=== PATIENT | male | born 1960 | race Caucasian/White ===

== ENCOUNTER 2025-02-12 15:59 | Emergency (ER) | payer MEDICARE, SELFPAY ==
--- OUTSIDE RECORDS SUMMARY | 2025-02-12 16:02 | XMS_ITS | Encounter Summary ---
Author Organization [facility] Address [address] [place] [address] Care Team Providers Care Draw Hand Name Role Phone Becki Lunsford MD Primary Care Provider [phone] Reason for Visit * Auth/Cert (Routine) Specialty Diagnoses / Procedures Referred By Susan t Referred To Contact Diagnoses HEMATURIA, GROSS; BLADDER MASS R31.0, N32.89 Procedures CYSTOURETHROSCOPY,FULGUR .5-2CM LESN CYSTOSCOPY WITH TRANSURETHRAL RESECTION BLADDER TUMOR Alexsander Grady MD 3 [facility] [address] [place] [address] Phone: tel: fax: Referral ID Status Reason Start Date Expiration Date Visits Re quested Visits Authorized [id number] 1 1 Encounter Details Date Type Department Care Team (Late st Contact Info) Description 02/11/2025 5:36 AM CDT - 02/11/2025 2:35 PM [facility] Hospital Encounter [facility] [place] [address] Alexsander Grady MD 3 [facility] [address] [place] [address] [phone] Discharge Disposition: Home or Self Care (Routine Discharge) Social History Tobacco Use Types Packs/Day Years Used Date Smoking Tobacco: Every Day Cigarettes 1 40 Smokeless Tobacco: Never Comments:not ready to quit Alcohol Use Standard Drinks/Week Comments Yes 0 (1 standard drink = 0.6 oz pur e alcohol) occasional AUDIT-C Answer Date Recorded Frequency of Alcohol Consumption 4 or more times a week 07/01/2018 Average Number of Drinks 3 or 4 018 Frequency of Binge Drinking Not on file 06/06 PHQ-2 Answer Date Recorded Patient Health Questionnaire-2 Score 0 01/05/2025 Sex and Gender Information Value Date Recorded Sex Assigned at Male 11/17/2018 8:20 AM CDT Legal Sex Male 7:58 PM CDT Gender Identity Male 11/17/2018 8:20 AM CDT Sexual Orientation Straight 11/17/2018 8: 20 AM CDT documented as of this encounter Last Filed Vital Signs Vital Sign Reading Time Taken Comments Blood Pressure 115/69 02/11/2025 2:30 PM CDT Pulse 101 02/11/2025 2:30 PM CDT Temperature 37 C (98.6 F) 02/11/2025 2:30 PM CDT Respiratory Rate 20 02/11/2025 2:30 PM CDT Oxygen Saturation 94% 02/11/2025 2:30 PM CDT Inhaled Oxygen Concentration - - Weight 82.4 kg (181 lb 10.5 oz) 02/11/2025 6:25 AM CDT Height 170.2 cm (5' 7) 02/11/2025 6:25 AM CDT Body Mass Index 28.45 02/11/2025 6:25 AM CDT documented in this encounter Functional Status * Calculated C-SSRS Risk Score (Lifetime/Recent) Answer Date of Assessment Author Status No Risk Indicated 02/11/2025 7:00 AM CDT Karyn Mayo RN Active * [place] Suicide Severity Rating Scale (Screener/Recent Self-Report) Question Answer Date of Assessment Author Status 1. Wish to be (Past 1 Month) No 02/11/2025 7:00 AM CDT Maria Fernanda Mayo RN Ac tive 2. Non-Specific Active Suicidal Thoughts (Past 1 Month) No 02/11/2025 7:00 AM CDT Maria Fernanda Mayo RN Act fawad 6. Suicidal Behavior (Lifetime) No 02/11/2025 7:00 AM REMYT Maria Fernanda Mayo RN Act fawad documented as of this encounter Discharge Instructions * Discharge Instructions* Zofia Escobar RN - 02/11/2025 8:57 AM CDT Your urine will be bloody and should begin to clear a few days after your treatment. Increase fluids until your urine clears. Call your doctor if you develop a fever above 100 degrees of have thick, blood clotted urine. If your doctor hasn???t given you a prescription for pain relievers, take two Tylenol every four hours, as needed. If the pain does not get better, call your doctor. Return to your usual medications, unless otherwise directed by your doctor. Do not take aspirin products until your urine begins to clear. Avoid heavy lifting (over 25 to 30 pounds) for long periods of time during the first week Because you had anesthesia, we suggest these things: -Avoid greasy, fried or spicy foods for today -Take medication with food -Have a responsible adult stay with you the rest of today and overnight -No alcohol, driving, making major decision or operating machinery for 24 hours If you have chest pain, shortness of breath, excessive bleeding or drainage, if you cannot hold down anything to eat or drink, or if you cannot urinate, please call 911 or go to the nearest emergencyroom. If you have fever, pain not controlled by your medication, signs of infection such as redness or discharge or swelling at the site, or any other questions or concerns, please call your surgeon. * Attachments The following attachments cannot be sent through Care Everywhere. * Cystoscopy Discharge Instructions (Chadian) * Transurethral resection of a bladder tumor ??? Discharge instructions (Chadian) * General Anesthesia Discharge Instructions (Chadian) * Lockett Catheter, Male (Chadian) documented in this encounter Medications at Time of Discharge amLODIPine (NORVASC) 10 MG tabletIndications:Pr imary hypertension Take 1 tablet (10 mg total) by mouth daily. 90 tablet 1 10/14/2024 atorvastatin (LIPITOR) 10 MG tabletIndications:Mi xed hyperlipidemia Take 1 tablet (10 mg total) by mouth nightly at bedtime. 90 tablet 1 10/14/2024 DULoxetine (CYMBALTA) 60 MG capsuleIndications:C hronic bilateral low back pain without sciatica Take 1 capsule (60 mg total) by mouth nightly at bedtime. 90 capsule 1 10/14/2024 glipiZIDE (GLUCOTROL) 10 MG tabletIndications:Ty pe 2 diabetes mellitus with hyperglycemia, without long-term current use of insulin ([facility] HHS/HCC) TAKE 1 TABLET BY MOUTH TWICE A DAY 180 tablet 1 01/08/2025 hydroCHLOROthiazide (MICROZIDE) 12.5 MG capsuleIndications:P rimary hypertension Take 1 capsule (12.5 mg total) by mouth every morning. 90 capsule 1 10/14/2024 metFORMIN (GLUCOPHAGE) 1000 MG tabletIndications:Ty pe 2 diabetes mellitus with hyperglycemia, without long-term current use of insulin ([facility] HHS/HCC) Take 1 tablet by mouth daily 90 tablet 1 10/14/2024 metoprolol succinate ER (TOPROL-XL) 25 MG 24 hr tabletIndications:Pr imary hypertension Take 1 tablet (25 mg total) by mouth daily. 90 tablet 1 10/14/2024 Multiple Vitamins-Minerals (CENTRUM SILVER ULTRA MENS) Tab Take 1 tablet by mouth daily. 07/27/2014 sildenafil (VIAGRA) 50 MG tabletIndications:Er ectile dysfunction, unspecified erectile dysfunction type Take 1 tablet (50 mg total) by mouth as needed. 10 tablet 04/07/2021 documented as of this encounter H&P Notes * Alexsander Grady MD - 02/11/2025 7:05 AM CDT Attending Provider: Alexsander Grady MD PCP: BECKI LUNSFORD MD Leyla Frias is an 64-year-old male. Reason for Admission: * No active hospital problems. * Bladder mass HPI: Mr. Frias had hematuria. A CT urogram showed a large bladder mass. There is no hydronephrosis. He presents today for a cystoscopy with a transurethral resection of bladder tumor. Past Medical History[1] Allergies: No Known Allergies Social History Tobacco Use Smoking status: Every Day Current packs/day: 1.00 Average packs/day: 1 pack/day for 40.0 years (40.0 ttl pk-yrs) Types: Cigarettes Smokeless tobacco: Never Tobacco comments: not ready to quit Substance Use Topics Alcohol use: Yes Comment: occasional Past Surgical History[2] Family History[3] Travel Exposure: No current facility-administered medications on file prior to encounter. Current Outpatient Medications on File Prior to Encounter Medication Sig amLODIPine (NORVASC) 10 MG tablet Take 1 tablet (10 mg total) by mouth daily. atorvastatin (LIPITOR) 10 MG tablet Take 1 tablet (10 mg total) by mouth nightly at bedtime. DULoxetine (CYMBALTA) 60 MG capsule Take 1 capsule (60 mg total) by mouth nightly at bedtime. glipiZIDE (GLUCOTROL) 10 MG tablet TAKE 1 TABLET BY MOUTH TWICE A DAY hydroCHLOROthiazide (MICROZIDE) 12.5 MG capsule Take 1 capsule (12.5 mg total) by mouth every morning. metFORMIN (GLUCOPHAGE) 1000 MG tablet Take 1 tablet by mouth daily metoprolol succinate ER (TOPROL-XL) 25 MG 24 hr tablet Take 1 tablet (25 mg total) by mouth daily. Multiple Vitamins-Minerals (CENTRUM SILVER ULTRA MENS) Tab Take 1 tablet by mouth daily. sildenafil (VIAGRA) 50 MG tablet Take 1 tablet (50 mg total) by mouth as needed. Blood pressure 121/73, pulse 89, temperature 97.7 ??F (36.5 ??C), temperature source Temporal, resp. rate 22, height 1.702 m (5' 7), weight 82.4 kg (181 lb 10.5 oz), SpO2 96%. Review of Systems All other systems reviewed and are negative. Physical Exam Constitutional: Appearance: He is normal weight. HENT: Head: Normocephalic and atraumatic. Pulmonary: Effort: Pulmonary effort is normal. Abdominal: General: Abdomen is flat. Neurological: General: No focal deficit present. Mental Status: He is alert and oriented to person, place, and time. Psychiatric: Mood and Affect: Mood normal. Behavior: Behavior normal. Assessment: Bladder mass consistent with bladder cancer Plan: Cystoscopy with transurethral resection of a bladder tumor. We discussed risks of bleeding and infection. We discussed the possible need for a Lockett catheter after surgery. We discussed that if tumors involving the ureters, a stent may be needed. He would like to proceed as planned with surgery today. ALEXSANDER GRADY MD 02/11/2025 [1] Past Medical History: Diagnosis Date Bladder mass 02/03/2025 Cataract Diabetes mellitus ([facility]/HCC [facility]/HCC) [2] Past Surgical History: Procedure Laterality Date EYE SURGERY FRACTURE SURGERY left elbow [3] Family History Problem Relation Name Age of Onset Sleep Apnea Mother None Father documented in this encounter Nursing Notes * Miracle Hughes RN - 02/11/2025 9:00 AM CDT Patient hypertensive upon arrival to PACU. Difficulty with airway and required jaw thrust with ambubag. Provider at bedside ordered another dose of sugammedex. Respirations normalized upon receivingsugammadex. Able to wean off O2 in PACU. * Mayra Ignacio RN - 02/11/2025 8:08 AM CDT Patient daughter updated through epic texting documented in this encounter OR Notes * Op Note - Alexsander Grady MD - 02/11/2025 8:43 AM CDT Operative Report SURGEON: Alexsander Grady MD SURGICAL TEAM: Surgeons and Role: * Alexsander Grady MD - Primary DATE OF SURGERY : 02/11/2025 PREOPERATIVE DIAGNOSIS: HEMATURIA, GROSS; BLADDER MASS R31.0, N32.89 POSTOPERATIVE DIAGNOSIS: * No Diagnosis Codes entered * PROCEDURE: Cystoscopy with transurethral resection of a large, 6 cm, bladder tumor 2. DRAINS: None INDICATION FOR PROCEDURE: This is a 64-year-old man who presents to [facility] with left lateral wall bladder mass. Prior to the procedure, I discussed the benefits, risks and alternatives to this procedure. Findings Pancystoscopy revealed a 6 cm bladder tumor on the left lateral bladder wall Bilateral ureteral orifice in normal position No evidence of bleeding at the completion of the surgery ANESTHESIA: General Specimens: Order Name Source Comment Collection Info Order Time PATHOLOGY BLADDER Collected By: Alexsander Grady MD 02/11/2025 8:06 AM Release to patient System release Complications: none OPERATIVE DETAILS The patient was brought to the operating room in stable condition. He was placed under general anesthesia. He was placed in lithotomy position and prepped and draped in standard sterile fashion. He received antibiotic prophylaxis within 1 hour of the start of surgery. A 26 Georgian continuous-flow resection scope was introduced through the urethra into the bladder. A small bladder stone was noted. This was flushed out of the bladder. There was a 6 cm bladder tumor on the left side of the bladder wall. I could clearly visualize the right ureteral orifice. I initially could not visualize the leftureteral orifice. I resected the bladder tumor starting at the more superior portion of the tumor. I resected down towards the trigone. With removal of the tumor, I was able to visualize the ureter. The ureter was not involved with the tumor on the left side or the right side. I completed the resection of the tumor. I removed all of the specimens. The tumor is visually a muscle invasive bladder tumor. I controlled all of the bleeding. I filled and emptied the bladder multiple times to ensure the bleeding was fully controlled. There was no residual bleeding noted. I then remove the scope. I placed lidocaine jelly. The patient tolerated the procedure well. Condition on Discharge from the operating room was stable ALEXSANDER GRADY MD Date: 02/11/2025 Time: 8:43 AM * OR PreOp - TAJ Robbins - 02/03/2025 10:54 AM CDT Chart reviewed. Per phone interview, patient denies extreme SOB/CP with 2 FOS or recent changes in activity tolerance in past 6 months. Per phone interview, patient denies having a family member caretaker or previous cardiac testing. EKG DOS 2/2 smoking hx. * OR PreOp - Chinyere Moran RN - 02/02/2025 3:59 PM CDT PATIENT CAN CLIMB 2 FLIGHTS OF STAIRS WITHOUT CP OR EXTREME SOB. yes ACTIVITY TOLERANCE IS THE SAME 6 MONTHS AGO. yes DENIES CARDIAC TESTING. AVERAGE BLOOD PRESSURE? Says that BP is normally good, but can't recall the numbers. Amlodipine, Toprol, HCTZ Patient is a current tobacco user. They were instructed to hold any tobacco use after midnight the night before the surgical procedure. Patient understood instructions and provided consent. documented in this encounter Plan of Treatment Upcoming Encounters Date Type Department Care Team (Late st Contact Info) Description 04/08/2025 1:00 PM CDT Office Visit [facility] Family & Internal Medicine [address] [phone] Becki Lunsford MD [address] [address] documented as of this encounter Goals Goal Patient Goal Type Associated Problems Recent Progress Patient-Stated? Author Autogenerat ed Goal Care Plan Autogenerated Problem No Shikha Byrd RN documented as of this encounter Procedures Procedure Name Priority Date/Time Associated Diagnosis Comments XR CHEST PORTABLE Today 02/11/2025 11: 15 AM CDT POCT GLUCOSE - DOCKED DEVICE Routine 02/11/2025 9:20 AM CDT CYSTOURETHROSCOPY ,FULGUR .5-2CM LESN 02/11/2025 7:26 AM CDT HEMATURIA, GROSS; BLADDER MASS R31.0, N32.89 Case Notes SCHED BY FAX 01/29/2025 [facility] PHONE ASSESS Special Needs PER FAX ORDER NEEDS 2 HOURS ECG 12-LEAD STAT 02/11/2025 6:47 AM CDT Preop examination POCT GLUCOSE - DOCKED DEVICE Routine 02/11/2025 6:43 AM CDT PATHOLOGY Routine 02/11/2025 12:00 AM CDT documented in this encounter Results * XR CHEST PORTABLE (02/11/2025 11:15 AM CDT) Anatomical Region Laterality Modality Chest Radiographic Mini ging 02/11/2025 11:1 7 AM CDT Impressions 02/11/2025 11:17 AM CDT IMPRESSION: No acute findings Ordered By: SUZIE LYNN Interpreted By: Kings Rodriguez MD, 02/11/2025 11:17 AM Narrative 02/11/2025 11:17 AM CDT [place] [address] SINGLE VIEW OF THE CHEST Clinical history: Hypoxia Comparison: None A single view of the chest demonstrates the cardiac silhouette to be normal in size and appearance. The pulmonary vessels appear normal. The Lungs are clear. No consolidations or effusions are seen. Procedure Note Kings Rodriguez MD - 02/11/2025 [place] [address] SINGLE VIEW OF THE CHEST Clinical history: Hypoxia Comparison: None A single view of the chest demonstrates the cardiac silhouette to benormal in size and appearance. The pulmonary vessels appear normal. TheLungs are clear. No consolidations or effusions are seen. IMPRESSION: No acute findings Ordered By: SUZIE LYNN Interpreted By: Kings Rodriguez MD, 02/11/2025 11:17 AM Suzie Lynn MD GENERAL IMAGING Final Result * (ABNORMAL) POCT glucose (02/11/2025 9:20 AM CDT) GLUCOSE POC 210(H) 70 - 99 mg/dL 02/11/2025 9:22 AM CDT [facility] 02/11/2025 9:20 AM CDT Alexsander Grady MD POCT ORDERABLES - DEVICE Final Result [facility] [address] [place] [address], * ECG 12 lead (02/11/2025 6:47 AM CDT) 02/11/2025 6:47 AM CDT Narrative [facility] - 02/11/2025 7:19 AM CDT [address] Test Date: 2025-02-11 Pat Name: LEYLA FRIAS Department: 40 Room: [facility] Gender: Male Professional Fighter: : 1960 Requested By: NIHARIKA HERNANDEZ Order Number: [id number] Reading MD: Leyla Diaz Measurements Intervals Arion Rate: 87 P: 60 NH: 149 QRS: 261 QRSD: 150 T: 47 QT: 394 QTc: 476 Interpretive Statements SINUS RHYTHM RIGHT AXIS DEVIATION [QRS AXIS > 100] RIGHT BUNDLE BRANCH BLOCK [120+ ms QRS DURATION, UPRIGHT V1, 40+ ms S IN I/aVL/V4/V5/V6] Compared to ECG 08/13/2015 10:00:38 Right-axis deviation now present Right bundle-branch block now present Sinus tachycardia no longer present Right superior axis no longer present Procedure Note Leyla Diaz MD - 02/11/[address] Test Date: 2025-02-11 Pat Name: LEYLA FRIAS Department: 40 Room: [facility] Gender: Male Professional Fighter: : 1960 Requested By: NIHARIKA HERNANDEZ Order Number: [id number] Reading MD: Leyla Diaz Measurements Intervals Arion Rate: 87 P: 60 NH: 149 QRS: 261 QRSD: 150 T: 47 QT: 394 QTc: 476 Interpretive Statements SINUS RHYTHM RIGHT AXIS DEVIATION [QRS AXIS > 100] RIGHT BUNDLE BRANCH BLOCK [120+ ms QRS DURATION, UPRIGHT V1, 40+ ms SIN I/aVL/V4/V5/V6] Compared to ECG 08/13/2015 10:00:38 Right-axis deviation now present Right bundle-branch block now present Sinus tachycardia no longer present Right superior axis no longer present Niharika Hernandez MACHINE CLEANER ECG ORDERABLES Final R esult Performing Organization Address City/[facility]/ZIP Co de Phone Number [facility] * (ABNORMAL) POCT glucose (02/11/2025 6:43 AM CDT) GLUCOSE POC 144(H) 70 - 99 mg/dL 02/11/2025 6:59 AM CDT [facility] 02/11/2025 6:43 AM CDT Alexsander Grady MD POCT ORDERABLES - DEVICE Final Result Performing Organization Address City/[facility] Co de Phone Number [facility] [address] [place] [address], [place] [phone] * Pathology (02/11/2025 12:00 AM CDT) PATHOLOGY [facility] Department of Laboratory Medicine [address] [place] [address] , extension [phone] Pathology Report Surgical Pathology Report Name: ALTAGRACIA LEYLA Hernandez Specimen #: [id number] Age: 11 1960 (Age: 64) Location: [facility] Sex: M Procedure Date: 02/11/2025 Hospital #: [id number] Date Received: 02/11/2025 Date Reported: 02/12/2025 Provider: ALEXSANDER GRADY MD Source: Bladder tumor Clinical History: Gross hematuria, bladder mass. 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 - Muscularis propria is involved by carcinoma. Gross Description: Received in formalin, labeled with a patient label and as bladder tumor are multiple pieces of pink-cooper tissue, 5.5 x 4.5 x 1 cm in aggregate. The specimen is entirely submitted in cassettes 1 through 9. Gross examination (when applicable), interpretation, and sign out were performed at [facility], [address] [place] [address]. Electronically Signed Out PEDRO LUIS BOBBY MD [facility] TISSUE URINARY BLADDER STRUCTURE / Unknown 02/11/2025 8:05 AM CDT us Alexsander Grady MD PATHOLOGY/CYTOLOGY ORDERABLES F inal Result [facility] [address] [place] [address], [phone] documented in this encounter Visit Diagnoses Diagnosis Hematuria- Primary Hematuria, unspecified Bladder mass Other specified disorders of bladder Preop examination Preoperative examination, unspecified documented in this encounter Administered Medications Inactive Administered Medications - up to 3 most recent administrations Medication Order MAR Action Action Date Dose Rate Site dexamethasone (DECADRON) injection 4 mg 4 mg, Intravenous, PRN, nausea/vomiting, 1 dose, Starting on Josefina 02/11/25 at 1020, Until Josefina 02/11/25 at 1044, Administer slowly over 1-4 minutes. Given 02/11/2025 10:44 AM CDT 4 mg ipratropium-albuterol (DUONEB) 0.5-2.5 (3) MG/3ML nebulizer solution 3 mL 3 mL, Nebulization, Once RT, 1 dose, On Josefina 02/11/25 at 0930 Given 02/11/2025 9:17 AM CDT 3 mLs ipratropium-albuterol (DUONEB) 0.5-2.5 (3) MG/3ML nebulizer solution 3 mL 3 mL, Nebulization, Once RT, 1 dose, On Josefina 02/11/25 at 1045 Given 02/11/2025 10:27 AM CDT 3 mLs ipratropium-albuterol (DUONEB) 0.5-2.5 (3) MG/3ML nebulizer solution 1 dose, Starting on Josefina 02/11/25 at 1025, Until Josefina 02/11/25 at 1027, Created by cabinet override labetalol (TRANDATE) injection 5 mg 5 mg, Intravenous, Every 10 min PRN, High blood pressure, SBP>160, DBP>80, 4 doses, Starting on Josefina 02/11/25 at 0903, Until Josefina 02/11/25 at 1641 lactated ringers infusion at 10 mL/hr, Intravenous, Continuous, Starting on Josefina 02/11/25 at 0615, Until Josefina 02/11/25 at 1641, Not to be given to patients with end stage renal disease or dialysis. Infuse at TKO rate, Pre-Op New Bag 02/11/2025 7:24 AM CDT documented in this encounter Active and Recently Administered Medications Times are shown in CDT. Scheduled Medication Order 02/09/2025 02/10/2025 02/11/2025 ceFAZolin (ANCEF) 2 g in NS 100 mL IVPB (COMPLETED) 2 g, Intravenous, at 400 mL/hr, crew caller to O.R., 1 dose, First dose on Josefina 02/11/25 at 0615, Pre-Op 0737 (New Bag - Prov ider: Sheldon Renner, SALES SUPERVISOR) ipratropium-albuterol (DUONEB) 0.5-2.5 (3) MG/3ML nebulizer solution 3 mL (COMPLETED) 3 mL, Nebulization, Once RT, 1 dose, On Josefina 02/11/25 at 0930 0917 (Given - Provid er: Miracle Hughes RN) ipratropium-albuterol (DUONEB) 0.5-2.5 (3) MG/3ML nebulizer solution 3 mL (COMPLETED) 3 mL, Nebulization, Once RT, 1 dose, On Josefina 02/11/25 at 1045 1027 (Given - Provid er: Miracle Hughes RN) Continuous Medication Order 02/09/2025 02/10/2025 02/11/2025 lactated ringers infusion at 10 mL/hr, Intravenous, Continuous, Starting on Josefina 02/11/25 at 0615, Until Josefina 02/11/25 at 1641, Not to be given to patients with end stage renal disease or dialysis. Infuse at TKO rate, Pre-Op 0724 (New Bag - Prov ider: Sheldon Renner CRNA)0816 (Anesthesia Volume Adjustment - Provider: Sheldon Renner CRNA) PRN Medication Order 02/09/2025 02/10/2025 02/11/2025 dexamethasone (DECADRON) injection 4 mg (COMPLETED) 4 mg, Intravenous, PRN, nausea/vomiting, 1 dose, Starting on Josefina 02/11/25 at 1020, Until Josefina 02/11/25 at 1044, Administer slowly over 1-4 minutes. 1044 (Given - Provid er: Miracle Hughes RN) labetalol (TRANDATE) injection 5 mg 5 mg, Intravenous, Every 10 min PRN, High blood pressure, SBP>160, DBP>80, 4 doses, Starting on Josefina 02/11/25 at 0903, Until Josefina 02/11/25 at 1641 lidocaine (XYLOCAINE) 2 % jelly (CANCELED) As needed, Starting on Josefina 02/11/25 at 0826, Until Josefina 02/11/25 at 0849, Intra-Op 0826 (Given - Provid er: Alexsander Grady MD) NON FORMULARY (CANCELED) As needed, Starting on Josefina 02/11/25 at 0804, Until Josefina 02/11/25 at 0849, Intra-Op 0804 (Given - Provid er: Alexsander Grady MD - Comment: sterile water 2000 mL bags) documented in this encounter Additional Health Concerns Active Problems Noted Date Diagnosed Date Autogenerated Problem 01/29/2025 Assessment Noted Time PHQ-9 Depression Total Score: 2 01/09/20 23 2:30 PM CDT documented as of this encounter Care Teams Draw Hand Relationship Specialty Start [place] [address] [place] [address] PCP - General FAMILY PRACTICE 06/23/18 documented as of this encounter
--- OUTSIDE RECORDS SUMMARY | 2025-02-12 16:02 | XMS_ITS | Encounter Summary ---
Author Organization [facility] Address [address] [place] [address] Care Team Providers Care Block Sawyer Name Role Phone Conor Lunsford MD Primary Care Provider [phone] Encounter Details Date Type Department Care Team (Latest Contact Info) Description 01/06/2025 Results Follow-Up [facility] [address] [place] [address] Kassie García RN COMPREHENSIVE METABOLIC PANEL, LIPID PANEL, PROSTATE SPECIFIC ANTIGEN,SCREENING, Additional followed-up results: 2 Social History Tobacco Use Types Packs/Day Years [...] AM CDT documented as of this encounter Progress Notes * Kassie García RN - 01/06/2025 4:14 PM CDT Called [facility] lab and informed them we need a urine c/s. Lynda states she will get this started. Order placed. Called pt and informed him of this. Order placed for CT urogram. Referral to urology placed. * Kassie García RN - 01/06/2025 4:12 PM CDT Called pt and informed him of results. He v/u. documented in this encounter Plan of Treatment Upcoming Encounters Date Type Department Care Team (Late st Contact Info) Description 04/08/2025 1:00 PM CDT Office Visit [facility] Family & Internal Medicine [facility] [id number] [place] [phone] Conor Lunsford MD [address] [address] documented as of this encounter Visit Diagnoses Not on filedocumented in this encounter Additional Health Concerns Assessment Noted Time PHQ-9 Depression Total Score: 2 01/09/20 23 2:30 PM CDT documented as of this encounter Care Teams Block Sawyer Relationship Specialty [place] [address] [place] [address] PCP - General FAMILY PRACTICE 06/23/18 documented as of this encounter
--- OUTSIDE RECORDS SUMMARY | 2025-02-12 16:02 | XMS_ITS | Encounter Summary ---
Author Organization [facility] Address [address] [place] [address] Care Team Providers Care Melter Supervisor Oxygen Furnace Name Role Phone Conor Lunsford MD Primary Care Provider [phone] Reason for Visit * Auth/Cert (Routine) Specialty Diagnoses / Procedures Referred By Susan t Referred To Contact Diagnoses HEMATURIA, GROSS; BLADDER MASS R31.0, N32.89 Procedures CYSTOURETHROSCOPY,FULGUR .5-2CM LESN CYSTOSCOPY WITH TRANSURETHRAL RESECTION BLADDER TUMOR Alexsander Grady MD [address] [facility] [address] [place] [address] Phone: tel: fax: Referral ID Status Reason Start Date Expiration Date Visits Re quested Visits Authorized [id number] 1 1 Encounter Details Date Type Department Care Team (Late st Contact Info) Description 02/11/2025 7:30 AM CDT - 02/11/2025 10:24 AM CDT Surgery [facility] [place] [address] Alexsander Grady MD [address] [facility] [address] [place] [address] [phone] CYSTOSCOPY WITH TRANSURETHRAL RESECTION BLADDER TUMOR Surgery Details Date/Time Status Location OR Service Patient Class Case Class Case Type Trauma Case? 02/11/2025 7:30 AM Posted [facility] OR OR 1 Urology Short Stay/Outpati ent Surgery E - Elective No Panel 1 Procedure LRB Anes Op Region Wound Class Comments CYSTOSCOPY WITH TRANSURETHRA L RESECTION BLADDER TUMOR N/A General Bladder Clean Contaminate d Surgeon Surgeon Role Service Panel Alexsander Grady MD Primary Urology 1 Case Notes SCHED BY FAX 01/29/2025 [facility] PHONE ASSESS Special Needs PER FAX ORDER DR NEEDS 2 HOURS documented in this encounter Social History Tobacco Use Types Packs/Day Years [...] Sign Reading Time Taken Comments Blood Pressure 118/66 02/11/2025 9:45 AM CDT Pulse 88 02/11/2025 10:00 AM CDT Temperature 36.8 C (98.3 F) 02/11/2025 8:50 AM CDT Respiratory Rate 23 02/11/2025 10:0 0 AM CDT Oxygen Saturation 91% 02/11/2025 10: 00 AM CDT Inhaled Oxygen Concentration - - Weight 82.4 kg (181 lb 10.5 oz) 02/11/2025 6:25 AM CDT Height 170.2 cm (5' 7) 02/11/2025 6:25 AM CDT Body Mass Index 28.45 02/11/2025 6:25 AM CDT documented in this encounter Functional Status * Calculated C-SSRS Risk Score (Lifetime/Recent) Answer Date of Assessment Author Status No Risk Indicated 02/11/2025 7:00 AM CDT Karyn Mayo, RN Active * [place] Suicide Severity Rating Scale (Screener/Recent Self-Report) Question Answer Date of Assessment Author Status 1. Wish to be (Past 1 Month) No 02/11/2025 7:00 AM REMYT Maria Fernanda Mayo RN Act fawad 2. Non-Specific Active Suicidal Thoughts (Past 1 Month) No 02/11/2025 7:00 AM REMYT Maria Fernanda Mayo RN Act fawad 6. [...] through Care Everywhere. * Cystoscopy Discharge Instructions (Northern Irish) * Transurethral resection of a bladder tumor ??? Discharge instructions (Northern Irish) * General Anesthesia Discharge Instructions (Northern Irish) * Lockett Catheter, Male (Northern Irish) documented in this encounter Medications at Time [...] hyperglycemia, without long-term current use of insulin ([facility]/HCC) TAKE 1 TABLET BY MOUTH TWICE A DAY 180 tablet 1 01/08/2025 hydroCHLOROthiazide (MICROZIDE) 12.5 MG capsuleIndications:P rimary hypertension Take 1 capsule (12.5 mg total) by mouth every morning. 90 capsule 1 10/14/2024 metFORMIN (GLUCOPHAGE) 1000 MG tabletIndications:Ty pe 2 diabetes mellitus with hyperglycemia, without long-term current use of insulin ([facility]/HCC) Take 1 tablet by mouth daily [...] CDT Attending Provider: Alexsander Grady MD PCP: MD Leyla CONROY is an 64-year-old male. Reason for Admission: [...] Date Bladder mass 02/03/2025 Cataract Diabetes mellitus ([facility]/HCC [facility]/HCC) [2] Past Surgical History: Procedure Laterality Date [...] 8:08 AM CDT Patient daughter updated through [employer] texting documented in this encounter OR Notes [...] is a 64-year-old man who presents to [facility] with left lateral wall bladder mass. Prior [...] of the start of surgery. A 26 Polish continuous-flow resection scope was introduced through the [...] Date: 02/11/2025 Time: 8:43 AM * OR [facility] - TAJ Robbins - 02/03/2025 10:54 AM CDT Chart reviewed. Per phone interview, patient denies extreme SOB/CP with 2 FOS or recent changes in activity tolerance in past 6 months. Per phone interview, patient denies having a crystal growing technician or previous cardiac testing. EKG DOS 2/2 [...] Description 04/08/2025 1:00 PM CDT [facility] Family [facility] Internal Medicine [address] [address] Conor Lunsford MD [address] [place] [address] documented as of this encounter Goals Goal [...] 11:17 AM Narrative 02/11/2025 11:17 AM CDT [place] [address] SINGLE VIEW OF THE CHEST Clinical history: Hypoxia Comparison: None A single view of the chest demonstrates the cardiac silhouette to be normal in size and appearance. The pulmonary vessels appear normal. The Lungs are clear. No consolidations or effusions are seen. Procedure Note Kings Rodriguez MD - 02/11/2025 [place] [address] SINGLE VIEW OF THE CHEST Clinical history: [...] - 99 mg/dL 02/11/2025 9:22 AM CDT [facility] 02/11/2025 9:20 AM CDT Alexsander Grady MD POCT ORDERABLES - DEVICE Final Result Performing Organization Address City/State/[facility] Co de Phone Number [facility] [address] [place] [address], * ECG 12 lead (02/11/2025 6:47 AM CDT) 02/11/2025 6:47 AM CDT Narrative [facility] - 02/11/2025 7:19 AM CDT [address] Test Date: 2025-02-11 Pat Name: LEYLA FRIAS Department: 40 Room: [facility] Gender: Male Sales Representative Cash Registers: : 1960 Requested By: NIHARIKA HERNANDEZ Order Number: [id number] Gisela MD: Leyla Diaz Measurements Intervals [place] Rate: 87 P: 60 OR: 149 QRS: 261 QRSD: 150 T: 47 [...] Procedure Note Leyla Diaz MD - 02/11/[address] Test Date: 2025-02-11 Pat Name: LEYLA FRIAS Department: 40 Room: [facility] Gender: Male Sales Representative Cash Registers: : 1960 Requested By: NIHARIKA HERNANDEZ Order Number: [id number] Reading MD: Leyla Diaz Measurements Intervals [place] Rate: 87 P: 60 OR: 149 QRS: 261 QRSD: 150 T: 47 QT: 394 QTc: 476 Interpretive Statements SINUS RHYTHM RIGHT AXIS DEVIATION [QRS AXIS > 100] RIGHT BUNDLE BRANCH BLOCK [120+ ms QRS DURATION, UPRIGHT V1, 40+ ms SIN I/aVL/V4/V5/V6] Compared to ECG 08/13/2015 10:00:38 Right-axis deviation now present Right bundle-branch block now present Sinus tachycardia no longer present Right superior axis no longer present us Niharika Hernandez BIOASSAYIST ECG ORDERABLES Final R esult Performing Organization Address City/[facility]/ZIP Co de Phone Number [facility] * (ABNORMAL) POCT glucose (02/11/2025 6:43 AM CDT) Pathologist [facility] GLUCOSE POC 144(H) 70 - 99 mg/dL 02/11/2025 6:59 AM CDT [facility] 02/11/2025 6:43 AM CDT us Alexsander Grady MD POCT ORDERABLES - DEVICE Final Result Performing Organization Address City/[facility]/ZIP Co de Phone Number [facility] [address] [place] [address], * Pathology (02/11/2025 12:00 AM CDT) PATHOLOGY [facility] Department of Laboratory Medicine [address] [place] [address] , extension [phone] Pathology Report Surgical Pathology Report Name: LEYLA FRIAS Specimen #: [id number] Age: 11 1960 (Age: 64) Location: [facility] Sex: M Procedure Date: 02/11/2025 Hospital #: [id number] Date Received: 02/11/2025 Date Reported: 02/12/2025 Provider: [...] interpretation, and sign out were performed at [facility], [address] [place] [address], [place] [address]. Electronically Signed Out PEDRO LUIS BOBBY MD [facility] TISSUE URINARY BLADDER STRUCTURE / Unknown 02/11/2025 8:05 AM CDT Alexsander Grady MD PATHOLOGY/CYTOLOGY ORDERABLES F inal Result [facility] [address] [place] [address], [id number] documented in this encounter Visit Diagnoses Not on filedocumented in this encounter Administered Medications Inactive Administered [...] Until Josefina 02/11/25 at 1027, Created by carol ann sutton labetalol (TRANDATE) injection 5 mg 5 mg, [...] Pre-Op New Bag 02/11/2025 7:24 AM CDT lidocaine (XYLOCAINE) 2 % jelly As needed, Starting on Josefina 02/11/25 at 0826, Until Josefina 02/11/25 at 0849, Intra-Op Given 02/11/2025 8:26 AM CDT 1 Application Operative Site NON FORMULARY As needed, Starting on Josefina 02/11/25 at 0804, Until Josefina 02/11/25 at 0849, Intra-Op Given 02/11/2025 8:04 AM CDT 16,000 mLs Operative Site documented in this encounter Active and Recently Administered Medications Times are shown in CDT. Scheduled Medication Order 02/09/2025 02/10/2025 02/11/2025 ceFAZolin (ANCEF) 2 g in NS 100 mL IVPB (COMPLETED) 2 g, Intravenous, at 400 mL/hr, nuclear waste management engineer to O.R., 1 dose, First dose on Josefina 02/11/25 at 0615, Pre-Op 0737 (New Bag - Prov ider: Sheldon Renner CRNA) ipratropium-albuterol (DUONEB) 0.5-2.5 (3) MG/3ML nebulizer solution [...] documented as of this encounter Care Teams Melter Supervisor Oxygen Furnace Relationship Specialty [place] [address] [place] [address] PCP - General FAMILY PRACTICE 06/23/18 documented as of this encounter
--- OUTSIDE RECORDS SUMMARY | 2025-02-12 16:02 | XMS_ITS | Encounter Summary ---
Author Organization [facility] Address [address] [place] [address] Care Team Providers Care Paper Coating Machine Operator Name Role Phone Conor Lunsford MD Primary Care Provider [phone] Reason for Visit * Auth/Cert (Routine) Specialty Diagnoses / Procedures Referred By Contquincy t Referred To Contact Diagnoses HEMATURIA, GROSS; BLADDER MASS R31.0, N32.89 Procedures CYSTOURETHROSCOPY,FULGUR .5-2CM LESN CYSTOSCOPY WITH TRANSURETHRAL RESECTION BLADDER TUMOR Alexsander Grady MD 3 [facility] [address] [facility] [place] [address] Phone: tel: fax: Referral ID Status Reason Start Date Expiration Date Visits Re quested Visits Authorized [id number] 1 1 Encounter Details Date Type Department Care Team (Late st Contact Info) Description 02/11/2025 7:26 AM CDT Anesthesia Event [facility] OR [address] [place], [place] [id number] Suzie Figueredo MD [address] [facility] [address] [place] [address] Verna Hernandez FNP [address] [place] [address] Anesthesia Record Procedure Summary Procedure Name Responsible Anesthesiologist Anesthesia Start Time Anesthesia Stop Time CYSTOSCOPY WITH TRANSURETHRAL RESECTION BLADDER TUMOR (Bladder) Suzie Lynn MD 02/11/25 0726 02/11/25 0849 Events Date Time Event Comment 02/11/2025 0715 0715 AN Anesthesia Prepped 0726 An Start Patient ID and consent checked and patient reassessed. 0726 An Start Data 0726 Quick Note BROOKE Enriquez introduced to the patient and the patient verbally consents for the SRNA to participate in all appropriate aspects of perioperative care under the direct supervision of the REGROOVER. REGROOVER remains present for continuous supervision of the SRNA and maintains responsibility for documentation. 0729 Preoxygenation 0731 An Induction The patient was reevaluated immediately before moderate or deep sedation use and before anesthesia induction. 0733 An Intubation 0735 Anesthesia Ready 0833 An Emergence 0844 An Extubation 0846 Face Mask Applied 0847 an stop data 0849 Post Anesthetic Care Handoff I completed my handoff to the receiving nurse during which we: 1. Identified the patient 2. Identified the responsible provider 3. Reviewed the pertinent medical history 4. Discussed the surgical course 5. Reviewed intra-op anesthesia management and issues during anesthesia 6. Set expectations for post-procedure period 7. Allowed opportunity for questions and acknowledgement of understanding. 0849 An Stop Meds Name Total ceFAZolin (ANCEF) 2 g in NS 100 mL IVPB 2 g propofol (DIPRIVAN) 200 mg/20 mL injecti on 160 mg rocuronium (ZEMURON) 50 mg/5 mL injectio n 40 mg fentaNYL (SUBLIMAZE) 100 mcg/2 mL inject ion 100 mcg phenylephrine (BENITO-SYNEPHRIN E) 50 mg in sodium chloride 0.9 % 250 mL (0.2 mg/mL) infusion 0.53 mg lidocaine (PF) (XYLOCAINE) 2% injection 100 mg succinylcholine (ANECTINE) 20 mg/mL inje ction 100 mg albuterol 108 mcg/act inhaler 12 puff sugammadex (BRIDION) 200 mg/2 mL injecti on 200 mg lactated ringers infusion 300 mL * Agents Name O2 Air Inspired Sevoflurane Sevoflurane * Blood No blood administrations on file. Lines, Drains, and Airways Type Details Placement Removal Peripheral IV Placement Date: 02/02 ; Placement Time: 06; Placed Outside of This Facility?: No; Size: 18 G; Orientation: Left; Location: Hand; Site Prep: Chlorhexidine; Local Anesthetic: None; Inserted By: Maria Fernanda LARA; Insertion attempts: 1; Ultrasound-guided Placement?: No; Patient Tolerance: Tolerated well; Removal Date: 02/11/25; Removal Time: 1420; Removal Reason: Patient Discharged 02/11/25 0635 by Maria Fernanda Mayo RN 02/11/25 1420 by Zofia Escobar RN ETT Placement Date: 02/02 ; Placement Time: 07; Placed Outside of This Facility?:No; Mask Ventilate: Not attempted; Size (mm) : 7.5; Endotracheal: Oral; Blade Type: MAC 4; Placement Method: Direct Laryngoscopy (blade type in comment) (MAC 4); View Grade: 2; Viewable Anatomy: Epiglottis, Arytenoid, Vocal cords; Insertion Attempts: 1; Placement Verified By: Capnography, Auscultation, Chest Rise; Placed By: BROOKE; Extubation Assessment: Suctioned, Moves all extremities strongly, Able to swallow, Atraumatic, Lifts et holds head > 5 seconds, Patient spontaneously breathing, Tolerated well; Removal Date: 02/11/25; Removal Time: 0844; Removal Person: Other (Comment) (SRNA); Removal Reason: End of Case 02/11/25 0733 by Sheldon Renner CRNA 02/11/25 0844 by Sheldon Renner CRNA documented in this encounter Social History Tobacco [...] AM CDT documented as of this encounter Functional Status * Calculated C-SSRS Risk Score (Lifetime/Recent) Answer Date of Assessment Author Status No Risk Indicated 02/11/2025 7:00 AM CDT Karyn Mayo RN Active * [place] Suicide Severity Rating Scale (Screener/Recent Self-Report) Question Answer Date of Assessment Author Status 1. Wish to be (Past 1 Month) No 02/11/2025 7:00 AM Maria Fernanda Lucas RN Act fawad 2. Non-Specific Active Suicidal Thoughts (Past 1 Month) No 02/11/2025 7:00 AM REMYT Maria Fernanda Mayo RN Act fawad 6. Suicidal Behavior (Lifetime) No 02/11/2025 7:00 AM Maria Fernanda Lucas RN Act fawad documented as of this encounter OR Notes * Anesthesia Postprocedure Evaluation - Suzie Lynn MD - 02/12/2025 1:41 PM CDT Anesthesia Post-op Note Kavin Noguera Procedure(s): CYSTOSCOPY WITH TRANSURETHRAL RESECTION BLADDER TUMOR (Bladder) Anesthesia type: general Vitals: 02/11/25 1430 BP: 115/69 Vitals: 02/11/25 1430 Pulse: (!) 101 Vitals: 02/11/25 1430 Resp: 20 Vitals: 02/11/25 1430 Temp: 37 ??C Vitals: 02/11/25 1430 SpO2: 94% Patient Location: Phase II/Outpatient Level of Consciousness: awake, alert and oriented Pain Management: adequate analgesia Airway Patency: patent Respiratory Status: spontaneous ventilation, nonlabored ventilation and room air Cardiovascular Status: hemodynamically stable Post-Op Nausea: none Postoperative Hydration: euvolemic Encounter Notable Events Notable Event Outcome Phase Comment Desaturation < 90% for over 3 min or < 80% for over 1 min Resolved in Room Intraprocedure * Anesthesia Postprocedure Evaluation - Suzie Lynn MD - 02/11/2025 1:41 PM CDT Anesthesia Post-op Note Kavin Noguera Procedure(s): CYSTOSCOPY WITH TRANSURETHRAL RESECTION BLADDER TUMOR (Bladder) Anesthesia type: general Vitals: 02/11/25 1247 BP: 134/73 Vitals: 02/11/25 1247 Pulse: (!) 107 Vitals: 02/11/25 1247 Resp: 20 Vitals: 02/11/25 0850 Temp: 36.8 ??C Vitals: 02/11/25 1247 SpO2: 90% Patient Location: PACU Level of Consciousness: awake, alert and oriented Pain Management: adequate analgesia Airway Patency: patent Respiratory Status: spontaneous ventilation, unassisted and nonlabored ventilation Cardiovascular Status: hemodynamically stable Post-Op Nausea: none Postoperative Hydration: euvolemic Comments: Patient evaluated multiple times prior to discharge from PACU. Prolonged stay in pacu complicated by respiratory depression followed by prolonged oxygen requirement. Received 2 duoneb treatments, steroids and incentive spirometry with SpO2 90-92% on discharge to [facility] No notable events documented. * Anesthesia Preprocedure Evaluation - Suzie Lynn MD - 02/11/2025 6:59 AM CDT Anesthesia ROS/MED History Reviewed: Patient summary , ECG, Family history anesthesia, Anesthesia history , Medications Pre-Anesthetic State: alert, awake and responds appropriately Pulmonary Cardiovascular (+) hypertension, hyperlipidemia Neuro/Psych Substance Use (+) smoker, 1 pack, marijuana use GI/Hepatic/Renal Endo/Other (+) diabetes mellitus, Type 2, managed with oral medications GENERAL COMMENTS Review of patient's allergies indicates: Patient has no known allergies. Past Surgical History: No date: EYE SURGERY No date: FRACTURE SURGERY Comment: left elbow Past Medical History: 02/03/2025: Bladder mass No date: Cataract No date: Diabetes mellitus ([facility]) NPO Status: Physical Evaluation Airway Mallampati: II TM Distance: >3 FB Neck ROM: normal Dental Pulmonary Pulmonary exam normal Cardiovascular Cardiovascular exam normal STOP-Bang Assessment: Do you snore loudly?: 0 Do you often feel tired or fatigued after your sleep?: 0 Has anyone ever observed you stop breathing in your sleep?: 0 Do you have or are you being treated for high blood pressure?: 1 Recent BMI (Calculated): 29.6 Is BMI greater than 35 kg/m2?: 0=No Age older than 50 years old?: 1=Yes Is your neck circumference greater than 17 inches (Male) or 16 inches (Female)?: 0 Gender - Male: 1=Yes STOP-Bang Total Score: 3 Anesthesia Plan ASA 2 Intravenous Induction Anesthesia type: general Plan for Post-op Pain Plan: oral pain medication, IV analgesics and as per surgeon Discussed potential risks of General Anesthesia including but not limited to corneal abrasion, visual impairment or visual loss, mouth injury, dental damage, sore throat, hoarseness, esophageal injury, awareness under anesthesia, nerve injury due to positioning, aspiration, pneumonia, stroke, cardiac event, adverse drug reactions and . The patient is a current smoker. Patient was previously instructed to abstain from smoking on day of procedure. Informed Consent Anesthetic plan, risks, and alternatives discussed with patient of whom consent was obtained. Consent of blood products not discussed. . documented in this encounter Plan of Treatment Upcoming Encounters Date Type Department Care Team (Late st Contact Info) Description 04/08/2025 1:00 PM CDT Office Visit [facility] Family & Internal Medicine [address] [address] Conor Lunsford MD [address] [place] [address] documented as of this encounter Goals Goal Patient Goal Type Associated Problems Recent Progress Patient-Stated? Author Autogenerat ed Goal Care Plan Autogenerated Problem No Shikha Byrd RN documented as of this encounter Visit Diagnoses Not on filedocumented in this encounter Administered Medications Inactive Administered Medications - up to 3 most recent administrations Medication Order MAR Action Action Date Dose Rate Site albuterol sulfate HFA 108 (90 Base) MCG/ACT inhaler Inhalation, PRN, Starting on Josefina 02/11/25 at 0750, Until Josefina 02/11/25 at 0853, Anesthesia Intra-Op Given 02/11/2025 8:35 AM CDT 4 puffs Given 02/11/2025 7:36 AM CDT 8 puffs ceFAZolin (ANCEF) 2 g in NS 100 mL IVPB 2 g, Intravenous, at 400 mL/hr, call center representative to O.R., 1 dose, First dose on Josefina 02/11/25 at 0615, Pre-OpIndications:Hematuria,Bladder mass New Bag 02/11/2025 7:37 AM CDT 2 g fentaNYL (SUBLIMAZE) injection Intravenous, PRN, Starting on Josefina 02/11/25 at 0751, Until Josefina 02/11/25 at 0853, Anesthesia Intra-Op Given 02/11/2025 7:51 AM CDT 50 mcg Given 02/11/2025 7:31 AM CDT 50 mcg lactated ringers infusion at 10 mL/hr, Intravenous, Continuous, Starting on Josefina 02/11/25 at 0615, Until Josefina 02/11/25 at 1641, Not to be given to patients with end stage renal disease or dialysis. Infuse at TKO rate, Pre-Op New Bag 02/11/2025 7:24 AM CDT lidocaine (PF) (XYLOCAINE) 2 % injection Intravenous, PRN, Starting on Josefina 02/11/25 at 0732, Until Josefina 02/11/25 at 0853, Anesthesia Intra-Op Given 02/11/2025 7:32 AM CDT 100 mg phenylephrine (BENITO-SYNEPHRINE) 50 mg in sodium chloride 0.9 % 250 mL (0.2 mg/mL) infusion Intravenous, Continuous PRN, Starting on Josefina 02/11/25 at 0735, Until Josefina 02/11/25 at 0853, Anesthesia Intra-Op New Bag 02/11/2025 7:35 AM CDT 0.4 mcg/kg/min 9.888 mL/hr propofol (DIPRIVAN) IV bolus Intravenous, PRN, Starting on Josefina 02/11/25 at 0732, Until Josefina 02/11/25 at 0853, Anesthesia Intra-Op Given 02/11/2025 7:32 AM CDT 160 mg rocuronium (ZEMURON) injection Intravenous, PRN, Starting on Josefina 02/11/25 at 0744, Until Josefina 02/11/25 at 0853, Anesthesia Intra-Op Given 02/11/2025 7:44 AM CDT 40 mg succinylcholine (ANECTINE) injection Intravenous, PRN, Starting on Josefina 02/11/25 at 0732, Until Josefina 02/11/25 at 0853, Anesthesia Intra-Op Given 02/11/2025 7:32 AM CDT 100 mg sugammadex (BRIDION) injection Intravenous, PRN, Starting on Josefina 02/11/25 at 0836, Until Josefina 02/11/25 at 0853, Anesthesia Intra-Op Given 02/11/2025 8:36 AM CDT 200 mg documented in this encounter Additional Health Concerns Active Problems Noted Date Diagnosed Date Autogenerated Problem 01/29/2025 Assessment Noted Time PHQ-9 Depression Total Score: 2 01/09/20 23 2:30 PM CDT documented as of this encounter Care Teams Paper Coating Machine Operator Relationship Specialty Start [place] [address] [place] [address] PCP - General FAMILY PRACTICE 06/23/18 documented as of this encounter
--- OUTSIDE RECORDS SUMMARY | 2025-02-12 16:02 | XMS_ITS | Clinical Summary ---
Author Organization [facility] Address [address] [place] [address] Care Team Providers Care Salad Maker Name Role Phone Becki Lunsford MD Primary Care Provider [phone] Allergies No known active allergies Medications Multiple Vitamins-Minerals (CENTRUM SILVER ULTRA MENS) Tab Take 1 tablet by mouth daily. 4 Active sildenafil (VIAGRA) 50 MG tabletIndications:E rectile dysfunction, unspecified erectile dysfunction type Take 1 tablet (50 mg total) by mouth as needed. 10 tablet 1 Active metoprolol succinate ER (TOPROL-XL) 25 MG 24 hr tabletIndications:P rimary hypertension Take 1 tablet (25 mg total) by mouth daily. 90 tablet 1 5 Active metFORMIN (GLUCOPHAGE) 1000 MG tabletIndications:T ype 2 diabetes mellitus with hyperglycemia, without long-term current use of insulin ([facility]/HCC HHS/HCC) Take 1 tablet by mouth daily 90 tablet 1 5 Active hydroCHLOROthiazide (MICROZIDE) 12.5 MG capsuleIndications: Primary hypertension Take 1 capsule (12.5 mg total) by mouth every morning. 90 capsule 1 5 Active DULoxetine (CYMBALTA) 60 MG capsuleIndications: Chronic bilateral low back pain without sciatica Take 1 capsule (60 mg total) by mouth nightly at bedtime. 90 capsule 1 5 Active atorvastatin (LIPITOR) 10 MG tabletIndications:M ixed hyperlipidemia Take 1 tablet (10 mg total) by mouth nightly at bedtime. 90 tablet 1 5 Active amLODIPine (NORVASC) 10 MG tabletIndications:P rimary hypertension Take 1 tablet (10 mg total) by mouth daily. 90 tablet 1 5 Active glipiZIDE (GLUCOTROL) 10 MG tabletIndications:T ype 2 diabetes mellitus with hyperglycemia, without long-term current use of insulin ([facility]) TAKE 1 TABLET BY MOUTH TWICE A DAY 180 tablet 1 5 Active Active Problems Problem Noted Date Diagnosed Date Diabetes mellitus ([facility]) 09/19/2017 Chronic bilateral low back pain without sciatica 11/08/2015 Insomnia 07/12/2015 Erectile dysfunction 06/14/2015 Gout 06/14/2015 Hyperlipidemia 06/14/2015 Type 2 diabetes mellitus, uncontrolled 5 Hypertension 07/27/2014 Carpal tunnel syndrome 01/05/2014 Cubital tunnel syndrome 01/05/2014 Resolved Problems Problem Noted Date Diagnosed Date Resolved Date Wears glasses 09/19/2017 04/15/2020 Encounters Date Type Department Care Team Description 02/11/2025 7:30 AM CDT - 02/11/2025 10:24 AM CDT [place] [address] Alexsander Grady MD CYSTOSCOPY WITH TRANSURETHRAL RESECTION BLADDER TUMOR 02/11/2025 7:26 AM CDT Anesthesia Event [place] [address] Suzie Figueredo MD Jackson, Samantha Rae, FNP 02/11/2025 5:36 AM CDT - 02/11/2025 2:35 PM CDT Hospital Encounter [facility] [place] [address] Alexsander Grady MD Discharge Disposition: Home or Self Care (Routine Discharge) 02/11/2025 Travel 02/02/2025 Travel 01/27/2025 Scan [facility] Scanned, [facility] 01/15/2025 Results Follow-Up [facility] Family & Internal Medicine [address] [phone]ía RN CT ABD+PEL UROGRAM WWO CON 01/14/2025 12:51 PM CDT - 01/14/2025 11:59 PM CDT [place] [address] [place] [address] Becki Lunsford MD Discharge Disposition: Home or Self Care (Routine Discharge) 01/14/2025 Telephone [facility] Internal [facility] [id number] [place] [phone] Becki Lunsford MD Advice 01/14/2025 Travel 01/06/2025 9:58 AM CDT - 01/06/2025 11:59 PM CDT Hospital Encounter [facility] [address] [place] [phone] Becki Lunsford MD Discharge Disposition: Home or Self Care (Routine Discharge) 01/06/2025 Orders Only [facility] Internal [address] [address] Becki Lunsford MD 01/06/2025 Results Follow-Up [facility] [address] [place] [phone] Kassie García RN COMPREHENSIVE METABOLIC PANEL, LIPID PANEL, PROSTATE SPECIFIC ANTIGEN,SCREENING, Additional followed-up results: 2 01/06/2025 Orders Only [facility] Internal [address] [phone] Becki Lunsford MD 01/06/2025 Orders Only [facility] Internal [address] [address] Becki Lunsford MD 01/05/2025 1:45 PM CDT - 01/05/2025 11:59 PM CDT Hospital Encounter [facility] [address] [place] [address] Becki Lunsford MD Discharge Disposition: Home or Self Care (Routine Discharge) 01/05/2025 1:00 PM CDT Office Visit [facility] Family & Internal Medicine [facility] [address] [place] [address] Becki Lunsford MD Follow Up; Diabetes 01/05/2025 Orders Only [facility] [address] [place] [address] Becki Lunsford MD 01/05/2025 Travel from Last 3 Months Immunizations Immunization Administration Dates Next Due Influenza Adult (Generic) 03/26/2023(Deferred: P atient/family declined) Shingrix 03/26/2023(Deferred: Patient/fam isiah declined) Family History Medical History Relation Comments None Father Sleep Apnea Mother Relation Status Comments Father Mother Alive Social History Tobacco Use Types Packs/Day Years Used Date Smoking Tobacco: Every Day Cigarettes 1 40 Smokeless Tobacco: Never Tobacco Cessation:Ready to Q uit: No; Counseling Given: Yes Comments:not ready to quit Alcohol Use Standard [...] Orientation Straight 11/17/2018 8: 20 AM CDT Last Filed Vital Signs Vital Sign Reading [...] Mass Index 28.45 02/11/2025 6:25 AM CDT Plan of Treatment Upcoming Encounters Date Type Department Care Team (Late st Contact Info) Description 04/08/2025 1:00 PM CDT Office Visit [facility] Family & Internal Medicine [facility] [address] [place] [address] Becki Lunsford MD [address] [address] Health Maintenance Due Date Last Done Comments Hepatitis C 1976 DTaP, Tdap and Td Vaccines (1 - Tdap) 1977 Pneumococcal Vaccine: 50+ Years (1 of 2 - PCV) 1977 Lung Cancer Screening 2008 Zoster Vaccines (1 of 2) 2008 RSV Immunization or 60+ Years (1 - Risk 60-74 years 1-dose series) 2018 Annual Medicare Wellness Visit 2023 COVID-19 Vaccine (2 - season) 2024 12/05/2020 Hemoglobin A1C 07/07/2025 01/05/2025, 10/03, 07/16/2024, Additional history exists Colorectal Cancer Screening Colonoscopy (10 Years) 08/16/2025 08/16/2015, 08/05/2015 Lipid Panel 01/05/2026 01/05/2025, 12/04, 12/11/2022, Additional history exists Kidney Health Evaluation 01/06/2026 01/06/2025 Diabetes: Retinopathy Eye Exam 05/24/2026 05/24/2024, 06/06/2020 PHQ-2 (Physician [place]) Completed 01/05/2025 AAA SCREENING Completed 01/14/2025 Meningococcal B Vaccine Aged Out No l onger eligible based on patient's age to complete this topic Meningococcal Vaccine Aged Out No raven tess eligible based on patient's age to complete this topic RSV Immunizations Under 20 Months Aged Out No longer eligible based on patient's age to complete this topic Goals Goal Patient Goal Type Associated Problems Recent Progress Patient-Stated? Author Autogenerat ed Goal Care Plan Autogenerated Problem No Shikha Byrd, single needle operator Procedure Name Priority Date/Time Associated Diagnosis Comments XR CHEST PORTABLE Today 02/11/2025 11:15 AM CDT POCT GLUCOSE - DOCKED DEVICE Routine 02/11/2025 9:20 AM CDT CYSTOURETHROSCOPY,FU LGUR .5-2CM LESN 02/11/2025 7:26 AM CDT HEMATURIA, GROSS; BLADDER MASS R31.0, N32.89 Case Notes SCHED BY FAX 01/29/2025 LCS PHONE ASSESS Special Needs PER FAX ORDER NEEDS 2 HOURS ECG 12-LEAD STAT 02/11/2025 6:47 AM CDT Preop examination POCT GLUCOSE - DOCKED DEVICE Routine 02/11/2025 6:43 AM CDT PATHOLOGY Routine 02/11/2025 12:[address] ABD+PEL UROGRAM WWO CON EVERARDO 01/14/2025 1:34 PM CDT Hematuria URINE BACTERIA CULTURE Routine 01/06/2025 9:30 AM CDT Dysuria URINALYSIS MICRO ONLY Routine 01/06/2025 9:30 AM CDT ALBUMIN URINE RANDOM W/CREATININE Routine 01/06/2025 9:30 AM CDT Type 2 diabetes mellitus with hyperglycemia, without long-term current use of insulin ([facility]) Prostate cancer screening HTN (hypertension) Mixed hyperlipidemia HC URINALYSIS AUTO W/O MICRO Routine 01/06/2025 9:30 AM CDT Type 2 diabetes mellitus with hyperglycemia, without long-term current use of insulin ([facility]) Prostate cancer screening HTN (hypertension) Mixed hyperlipidemia PROSTATE SPECIFIC ANTIGEN,SCREENING Routine 01/05/2025 1:56 PM CDT Type 2 diabetes mellitus with hyperglycemia, without long-term current use of insulin ([facility]) Prostate cancer screening HTN (hypertension) Mixed hyperlipidemia LIPID PANEL Routine 01/05/2025 1:56 PM CDT Type 2 diabetes mellitus with hyperglycemia, without long-term current use of insulin ([facility]) Prostate cancer screening HTN (hypertension) Mixed hyperlipidemia COMPREHENSIVE METABOLIC PANEL Routine 01/05/2025 1:56 PM CDT Type 2 diabetes mellitus with hyperglycemia, without long-term current use of insulin ([facility]) Prostate cancer screening HTN (hypertension) Mixed hyperlipidemia COLLECT.CAPILLARY (FNGR,HEEL,EAR) Routine 01/05/2025 12:56 PM CDT Type 2 diabetes mellitus with hyperglycemia, without long-term current use of insulin ([facility]) HEMOGLOBIN, GLYCOSYLATED Routine 01/05/2025 Type 2 diabetes mellitus with hyperglycemia, without long-term current use of insulin ([facility]) DIABETIC RETINOPATHY EXAM (NEGATIVE)(SCAN ORDER) Routine 05/24/2024 COLONOSCOPY GENERIC (SCAN ORDER) Routine 08/16/2015 from Last 3 Months or Most Recently Relevant to Health Maintenance Results * XR CHEST PORTABLE (02/11/2025 11:15 AM CDT) Anatomical Region Laterality Modality Chest Radiographic Mini ging 02/11/2025 11:1 7 AM CDT Impressions 02/11/2025 11:17 AM CDT IMPRESSION: No acute findings Ordered By: SUZIE LYNN Interpreted By: Kings Rodriguez MD, 02/11/2025 11:17 AM Narrative 02/11/2025 11:[address] [facility] [address] [place], [place] [address] SINGLE VIEW OF THE CHEST Clinical history: Hypoxia Comparison: None A single view of the chest demonstrates the cardiac silhouette to be normal in size and appearance. The pulmonary vessels appear normal. The Lungs are clear. No consolidations or effusions are seen. Procedure Note Kings Rodriguez MD - 02/11/2025 [facility] [address] [place], [place] [address] SINGLE VIEW OF THE CHEST Clinical history: [...] (ABNORMAL) POCT glucose (02/11/2025 9:20 AM CDT) Only the most recent of2 resultswithin the time period is included. [facility] GLUCOSE POC 210(H) 70 - 99 mg/dL 02/11/2025 9:22 AM CDT [facility] 02/11/2025 9:20 AM CDT Alexsander Grady MD POCT ORDERABLES - DEVICE Final Result [facility] [address] [place] [address], [place] [phone] * ECG 12 lead (02/11/2025 6:47 AM CDT) 02/11/2025 6:47 AM CDT Narrative [facility] ([place]) RAD - 02/11/2025 7:[address] [facility] [address] [place] [address] Test Date: 2025-02-11 Pat Name: LEYLA ALTAGRACIA Department: 40 Room: [place] Gender: Male Test Tech: : 1960 Requested By: NIHARIKA HERNANDEZ Order Number: [id number] Reading J CARLOS Diaz Measurements Intervals [place] Rate: 87 P: 60 ID: 149 QRS: 261 QRSD: 150 T: 47 [...] Procedure Note Leyla Diaz MD - 02/11/2025 [facility] [address] [place] [address] Test Date: 2025-02-11 Pat Name: LEYLA ALTAGRACIA Department: 40 Room: [facility] Gender: Male Test Tech: : 1960 Requested By: NIHARIKA HERNANDEZ Order Number: [id number] Reading J CARLOS Diaz Measurements Intervals [place] Rate: 87 P: 60 ID: 149 QRS: 261 QRSD: 150 T: 47 QT: 394 QTc: 476 Interpretive Statements SINUS RHYTHM RIGHT AXIS DEVIATION [QRS AXIS > 100] RIGHT BUNDLE BRANCH BLOCK [120+ ms QRS DURATION, UPRIGHT V1, 40+ ms SIN I/aVL/V4/V5/V6] Compared to ECG 08/13/2015 10:00:38 Right-axis deviation now present Right bundle-branch block now present Sinus tachycardia no longer present Right superior axis no longer present Niharika Hernandez [employer] ECG ORDERABLES Final R esult [facility] ([place] * Pathology (02/11/2025 12:00 AM CDT) PATHOLOGY [facility] Department of Laboratory Medicine [address] [place] [address] , extension [phone] Pathology Report Surgical Pathology Report Name: LEYLA FRIAS Specimen #: [id number] Age: 11 1960 (Age: 64) Location: [facility] Sex: M Procedure Date: 02/11/2025 Hospital #: [id number] Date Received: 02/11/2025 Date Reported: 02/12/2025 Provider: [...] interpretation, and sign out were performed at [facility], [address] [place] [address]. Electronically Signed Out PEDRO LUIS BOBBY MD [facility] TISSUE URINARY BLADDER STRUCTURE / Unknown 02/11/2025 8:05 AM CDT Alexsander Grady MD PATHOLOGY/CYTOLOGY ORDERABLES F inal Result Performing Organization Address City/[facility]/ZIP Co de Phone Number [facility] [address] [place] [address], [phone] * CT ABD+PEL UROGRAM WWO CON (01/14/2025 1:34 PM CDT) Anatomical Region Laterality Modality Abdomen Computed Tomogra phy 01/14/2025 11:5 8 PM CDT Impressions 01/15/2025 12:02 AM CDT IMPRESSION: 1. Large mass in the left and inferior bladder wall with heterogeneous enhancement. This is indistinguishable from the prostate at the inferior border. Urology consultation recommended for direct visualization and sampling. 2. No evidence of obstructive uropathy. No hydronephrosis or obstructive uropathy. No abnormal enhancing renal lesions. 3. Hepatic steatosis. 4. Coronary artery calcifications and atherosclerotic aorta. 5. Bilateral inguinal hernias containing fat. Referred By: BECKI LUNSFORD Interpreted By: Jake Mcmullen MD, 01/14/2025 11:58 PM Narrative 01/15/2025 12:02 AM CDT [place] [id number] [facility] [place] [address] EXAMINATION: CT Abdomen and Pelvis with and without contrast REASON FOR EXAM: hematuria COMPARISON: None TECHNIQUE: Axial CT images of the abdomen and pelvis are obtained before and after uneventful intravenous administration of 80 cc Isovue-370. Subsequent coronal and sagittal reformatted sequences are created for evaluation. A dose lowering technique was used for this procedure, which may include, but is not limited to, dose reduction technique, automated exposure control, iterative reconstruction, ALARA (As Low As Reasonably Achievable), or Image Gently techniques. FINDINGS: Lung bases clear. No pleural effusion. Heart size normal. No pericardial effusion. Coronary artery calcifications are seen. Liver and spleen normal in size and surface contour. No abnormal enhancing hepatic lesions. There is hepatic steatosis on the precontrast sequence. Gallbladder pancreas and adrenal glands unremarkable. Abdominal aorta normal in caliber throughout with prominent atherosclerotic disease and calcifications. The bowel is normal in caliber throughout. No evidence of bowel obstruction. Appendix normal. No free fluid in the pelvis. Bilateral inguinal hernias containing fat. Bone level imaging shows no destructive osseous lesions. Multilevel degenerative changes in the thoracolumbar spine. 2 simple cyst in the inferior right kidney. No internal septations or solid components. No follow-up imaging is recommended per consensus recommendation based on imaging criteria. Kidneys deficits symmetric uptake of contrast. No abnormal enhancing renal lesions appreciated. There is no hydronephrosis or evidence of obstructive uropathy on either side. Both ureters are normal in caliber throughout with no periureteral stranding. Abnormal nodular or masslike appearance of the left and inferior bladder wall measuring up to 2.5 cm in thickness. The entire region of presumed tumor measures up to 7.8 cm in greatest length. This region has heterogeneous enhancement following contrast administration. The inferior aspect of this region of tumor is indistinguishable from the prostate. Procedure Note Jake Mcmullen MD - 01/15/2025 [facility] [address] [facility] [place] [address] EXAMINATION: CT Abdomen and Pelvis with and without contrast REASON FOR EXAM: hematuria COMPARISON: None TECHNIQUE: Axial CT images of the abdomen and pelvis are obtained beforeand after uneventful intravenous administration of 80 cc Isovue-370.Subsequent coronal and sagittal reformatted sequences are created forevaluation. A dose lowering technique was used for this procedure, whichmay include, but is not limited to, dose reduction technique, automatedexposure control, iterative reconstruction, ALARA (As Low As ReasonablyAchievable), or Image Gently techniques. FINDINGS: Lung bases clear. No pleural effusion. Heart size normal. Nopericardial effusion. Coronary artery calcifications are seen. Liver and spleen normal in size and surface contour. No abnormalenhancing hepatic lesions. There is hepatic steatosis on the precontrastsequence. Gallbladder pancreas and adrenal glands unremarkable.Abdominal aorta normal in caliber throughout with prominentatherosclerotic disease and calcifications. The bowel is normal incaliber throughout. No evidence of bowel obstruction. Appendix normal.No free fluid in the pelvis. Bilateral inguinal hernias containing fat.Bone level imaging shows no destructive osseous lesions. Multileveldegenerative changes in the thoracolumbar spine. 2 simple cyst in the inferior right kidney. No internal septations orsolid components. No follow-up imaging is recommended per consensusrecommendation based on imaging criteria. Kidneys deficits symmetricuptake of contrast. No abnormal enhancing renal lesions appreciated.There is no hydronephrosis or evidence of obstructive uropathy on eitherside. Both ureters are normal in caliber throughout with no periureteralstranding. Abnormal nodular or masslike appearance of the left andinferior bladder wall measuring up to 2.5 cm in thickness. The entireregion of presumed tumor measures up to 7.8 cm in greatest length. Thisregion has heterogeneous enhancement following contrast administration.The inferior aspect of this region of tumor is indistinguishable from theprostate. IMPRESSION: 1. Large mass in the left and inferior bladder wall with heterogeneousenhancement. This is indistinguishable from the prostate at the inferiorborder. Urology consultation recommended for direct visualization andsampling. 2. No evidence of obstructive uropathy. No hydronephrosis or obstructiveuropathy. No abnormal enhancing renal lesions. 3. Hepatic steatosis. 4. Coronary artery calcifications and atherosclerotic aorta. 5. Bilateral inguinal hernias containing fat. Referred By: BECKI LUNSFORD Interpreted By: Jake Mcmullen MD, 01/14/2025 11:58 PM us Becki Lunsford MD CT Final Resul t * (ABNORMAL) URINALYSIS (01/06/2025 9:30 AM CDT) COLOR (U) YELLOW 01/06/2025 10:31 AM CDT [facility] TRANSPARENCY HAZY 01/06/2025 10:31 AM CDT [facility] SPECIFIC GRAVITY (U) 1.020 1.000 - 1.030 01/06/2025 10:31 AM CDT [facility] U PH 7.0 5.0 - 9.0 01/06/2025 10:31 AM CDT [facility] LEUKOCYTES (U) TRACE(A) NEGATIVE 01/06/2025 10:31 AM CDT [facility] NITRITES POSITIVE(A) NEGATIVE 01/06/2025 10:31 AM CDT [facility] PROTEIN RANDOM (U) 1+(A) NEGATIVE 01/06/2025 10:31 AM CDT [facility] GLUCOSE (U) 3+(A) NEGATIVE 01/06/2025 10:31 AM CDT [facility] KETONES MG/DL (U) NEGATIVE NEGATIVE 01/06/2025 10:31 AM CDT [facility] BILIRUBIN (U) NEGATIVE NEGATIVE 01/06/2025 10:31 AM CDT [facility] BLOOD (U) 3+(A) NEGATIVE 01/06/2025 10:31 AM CDT [facility] URINE SPECIMEN OBTAINED BY CLEAN CATCH PROCEDURE / Unknown 01/06/2025 9:30 AM CDT Becki Lunsford MD URINE ORDERABLES Final Resu lt [facility] [address] [place] [address], [place] [phone] * URINE BACTERIA CULTURE (01/06/2025 9:30 AM CDT) SPEC DESCRIPTION URINE CLEAN CATCH 01/06/2025 4:42 PM CDT [facility] SPECIAL REQUESTS NO SPECIAL REQUEST 01/06/2025 4:42 PM CDT [facility] CULTURE RESULT POLYMICROBIAL GROWTH CONSISTENT WITH NORMAL GENITAL VANESSA. SUSCEPTIBILITIES NOT ROUTINELY PERFORMED. 01/08/2025 1:38 PM CDT [facility] URINE SPECIMEN OBTAINED BY CLEAN CATCH PROCEDURE / Unknown 01/06/2025 9:30 AM CDT 01/06/2025 4:43 PM CDT Becki Lunsford MD MICROBIOLOGY - [facility] Final Result Performing Organization Address City/[facility]/ZIP Co de Phone Number [facility] [address] [place] [address], [place] [phone] [facility] [address] [place] [address], [place] [phone] * URINALYSIS MICRO ONLY (01/06/2025 9:30 AM CDT) WBC/HPF 5-10 0 - 5 /HPF 01/06/2025 10:32 AM CDT [facility] RBC/HPF 25-50 0 - 5 /HPF 01/06/2025 10:32 AM CDT [facility] EPI/HPF FEW /HPF 01/06/2025 10:32 AM CDT [facility] BACTERIA (U) MANY /HPF 01/06/2025 10:32 AM CDT [facility] 01/06/2025 9:30 AM CDT us Becki Lunsford MD URINE ORDERABLES Final Resu lt [facility] [address] [place] [address], [place] [phone] * (ABNORMAL) MICROALBUMIN CREATININE RATIO (MICROALBUMIN/ALBUMIN) (01/06/2025 9:30 AM CDT) CREATININE (U) 63.0 39 - 259 MG/DL 01/06/2025 2:52 PM CDT [facility] MICROALBUMIN (U) 11.3(H) <2.0 mg/dL 01/06/2025 2:52 PM CDT [facility] ALBUMIN/CREAT RATIO 179.5(H) <30.0 MG/G 01/06/2025 2:52 PM CDT [facility] URINE SPECIMEN / Unknown 01/06/2025 9:30 AM CDT us Becki Lunsford MD URINE ORDERABLES Final Resu lt Performing Organization Address [facility] Co de Phone Number [facility] [address] [place] [address], [place] [phone] * PROSTATE SPECIFIC ANTIGEN,SCREENING (01/05/2025 1:56 PM CDT) PSA 1.68 <4.00 NG/ML 01/05/2025 3:35 PM CDT [facility] Comment: Test was performed using the Siemens method. Results obtained with other assay methods or kits cannot be used interchangeably with results obtained by the Siemens method. 01/05/2025 1:56 PM CDT us Becki Lunsford MD LABORATORY Final Resul t Performing Organization Address [facility] de Phone Number [facility] [address] [place] [address], [place] [phone] * (ABNORMAL) COMPREHENSIVE METABOLIC PANEL (01/05/2025 1:56 PM CDT) GLUCOSE 193(H) 70 - 99 MG/DL 01/05/2025 3:21 PM CDT [facility] BUN 8 7 - 18 MG/DL 01/05/2025 3:21 PM CDT [facility] CREATININE S/P/B 0.92 0.7 - 1.3 MG/DL 01/05/2025 3:21 PM CDT [facility] SODIUM S/P/B 137 136 - 145 MMOL/L 01/05/2025 3:21 PM CDT [facility] POTASSIUM S/P/B 3.9 3.5 - 5.1 MMOL/L 01/05/2025 3:21 PM CDT [facility] CHLORIDE S/P/B 96(L) 100 - 108 MMOL/L 01/05/2025 3:21 PM [facility] CO2 34.6(H) 21 - 32 MMOL/L 01/05/2025 3:21 PM [facility] CALCIUM S/P/B 8.8 8.5 - 10.1 MG/DL 01/05/2025 3:21 PM [facility] BILIRUBIN TOTAL S/P/B 0.4 0.2 - 1.2 MG/DL 01/05/2025 3:21 PM [facility] TOTAL PROTEIN S/P/B 7.4 6.4 - 8.2 G/DL 01/05/2025 3:21 PM [facility] ALBUMIN S/P/B 3.9 3.4 - 5.0 G/DL 01/05/2025 3:21 PM [facility] [facility] AST 13(L) 15 - 37 U/L 01/05/2025 3:21 PM [facility] ALT 22 16 - 60 U/L 01/05/2025 3:21 PM [facility] ALKALINE PHOSPHATASE S/P/B 77 50 - 136 U/L 01/05/2025 3:21 PM [facility] ANION GAP 6.4 5 - 15 MMOL/L 01/05/2025 3:21 PM [facility] BUN CREATININE RATIO 8.7 6 - 26 01/05/2025 3:21 PM [facility] A/G RATIO 1.1 1.0 - 2.0 RATIO 01/05/2025 3:21 PM [facility] GFR ESTIMATE >90 >90 ML/MIN/1.7 3 M2 01/05/2025 3:21 PM CDT [facility] Comment: NOTE: eGFR is not calculated for patients <18 years of age. This is an estimated GFR calculation using the new CKD EPI creatinine equation without race and so does not require a correction factor for race. This estimated GFR should not be used for calculating drug doses. 01/05/2025 1:56 PM CDT us Becki Lunsford MD LABORATORY Final Resul t [facility] [address] [place] [address], * (ABNORMAL) LIPID PANEL (01/05/2025 1:56 PM CDT) CHOLESTEROL 118 <200.0 MG/DL 01/05/2025 3:21 PM T [facility] TRIGLYCERIDES 107 <150 MG/DL 01/05/2025 3:21 PM T [facility] HDL 36(L) >40.0 MG/DL 01/05/2025 3:21 PM T [facility] LDL (CALCULATED) 61 <100 MG/DL 01/06/20 3:21 PM [facility] NON HDL CHOLESTEROL 82 <130 MG/DL 01/05 3:21 PM T [facility] CHOL/HDL RATIO 3.3 0.0 - 4.5 01/05/2025 3:21 PM T [facility] VLDL CALCULATION 21 5 - 55 MG/DL 01/05/2025 3:21 PM T [facility] LIPID INTERPRETATION 01/05/2025 3:21 PM [facility] Comment: NIH CONCENSUS REPORT RECOMMENDATIONS: ADULT CHILD LOW RISK: CHOLESTEROL <200 <170 TRIGLYCERIDE <150 --- HDL >=60 --- LDL <100 <110 BORDERLINE: CHOLESTEROL 200-239 170-199 TRIGLYCERIDE 150-199 --- HDL 40-59 --- LDL 100-159 110-129 HIGH RISK: CHOLESTEROL >=240 >=200 TRIGLYCERIDE >=200 --- HDL <40 --- LDL >=160 >=130 01/05/2025 1:56 PM CDT Becki Lunsford MD LABORATORY Final Resul t Performing Organization Address [facility] de Phone Number [facility] [address] [place] [address], [place] [phone] * HEMOGLOBIN, GLYCOSYLATED (01/05/2025) HGB A1C 7.7 % [id number] T [facility] 01/05/2025 Becki Lunsford MD LABORATORY Final Resul t Performing Organization Address [facility] de Phone Number [phone] [facility] [address] [place] [address], [place] [phone] * DIABETIC RETINOPATHY EXAM (NEGATIVE) (05/24/2024) [facility] Scanned SCANNING Final Resu lt Performing Organization Address [facility] de Phone Number [facility] ONBASE * COLONOSCOPY (08/16/2015) us Documents Scanned SCANNING Final Result from Last 3 Months or Most Recently Relevant to Health Maintenance Additional Health Concerns Active Problems Noted Date Diagnosed Date Autogenerated Problem 01/29/2025 Insurance [facility] Care Teams Salad Maker Relationship Specialty [place] [address] [place], [place] [id number] PCP - General FAMILY PRACTICE 06/23/18
--- OUTSIDE RECORDS SUMMARY | 2025-02-12 16:02 | XMS_ITS | Encounter Summary ---
Author Organization [facility] Address [address] [place] [address] Care Team Providers Care Licensed Mortician Name Role Phone Conor Lunsford MD Primary Care Provider [phone] Encounter Details Date Type Department Care Team (Late st Contact Info) Description 01/15/2025 Results Follow-Up [facility] Family & Internal Medicine [facility] [id number] [place] [id number] García RN CT ABD+PEL UROGRAM WWO CON Social History Tobacco Use Types Packs/Day Years [...] Progress Notes * Kassie García RN - 01/15/2025 10:29 AM CDT Called pt and informed him of results. He v/u. Called [facility] and spoke with Johana. She states they did not receive referral on this pt. Order, chart notes, labs and imaging, insurance info, demographics faxed to them at [phone]. Message also sent to referral dept stating they didnot receive the insurance referral. Kesha states she faxed all info to [facility] and to their referral dept. documented in this encounter Plan of Treatment Upcoming Encounters Date Type Department Care Team (Late st Contact Info) Description 04/08/2025 1:00 PM CDT Office Visit [facility] Family & Internal Medicine - [place] [address] [place] [address] Conor Lunsford MD [address] [address] documented as of this encounter Visit Diagnoses Not on filedocumented in this encounter Additional Health Concerns Assessment Noted Time PHQ-9 Depression Total Score: 2 01/09/20 23 2:30 PM CDT documented as of this encounter Care Teams Licensed Mortician Relationship Specialty [place] [address] [place] [address] PCP - General FAMILY PRACTICE 06/23/18 documented as of this encounter
--- OUTSIDE RECORDS SUMMARY | 2025-02-12 16:02 | XMS_ITS | Encounter Summary ---
Author Organization [facility] Address [facility] [place] [address] Care Team Providers Care Poultry Pinner Name Role Phone Conor Lunsford MD Primary Care Provider [phone] Encounter Details Date Type Department Care Team (Latest Contact Info) Description 02/11/2025 Travel Social History Tobacco Use Types Packs/Day Years [...] AM CDT Karyn Mayo RN Active * [place] Suicide Severity Rating Scale (Screener/Recent Self-Report) Question Answer Date of Assessment Author Status 1. Wish to be (Past 1 Month) No 02/11/2025 7:00 AM REMYT Maria Fernanda Mayo RN Act fawad 2. Non-Specific Active Suicidal Thoughts (Past 1 Month) No 02/11/2025 7:00 AM CDT Maria Fernanda Mayo RN Act fawad 6. Suicidal Behavior (Lifetime) No 02/11/2025 7:00 AM CDT Maria Fernanda Mayo RN Act fawad documented as of this encounter Plan of Treatment Upcoming Encounters Date Type Department Care Team (Late st Contact Info) Description 04/08/2025 1:00 PM CDT Office Visit [facility] Group Family & Internal Medicine [facility] [address] [place] [address] Conor Lunsford MD [address] [facility] [address] [place] [address] documented as of this encounter Goals Goal Patient Goal Type Associated Problems Recent Progress Patient-Stated? Author Autogenerat ed Goal Care Plan Autogenerated Problem No Shikha Byrd RN documented as of this encounter Visit Diagnoses Not on filedocumented in this encounter Additional Health Concerns Active Problems Noted Date Diagnosed Date Autogenerated Problem 01/29/2025 Assessment Noted Time PHQ-9 Depression Total Score: 2 01/09/20 23 2:30 PM CDT documented as of this encounter Care Teams Poultry Pinner Relationship Specialty [place] [address] [place] [address] PCP - General FAMILY PRACTICE 06/23/18 documented as of this encounter
[2025-02-12 16:03] VITALS: BP 158/94; PULSE 123; RESP 16; TEMP 36.6; O2SAT 99
--- NOTE | 2025-02-12 16:38 | ED.GENADULT ---
HPI - General Adult General Chief complaint: Urogenital-Male Stated complaint: urinary retention, sx at [facility] yesterday Time Seen by Provider: 02/12/25 16:05 History of Present Illness HPI narrative: This is a 64-year-old male presenting with urinary retention. He had a urologic procedure performed at [facility] by Dr. Grady although he is unsure exactly what procedure was performed. His Lockett was removed yesterday and he has not been able to void since. He now has suprapubic discomfort. Related Data Allergies Allergy/AdvReac Type Severity Reaction Status Date / Time No Known Allergies Allergy Verified 02/12/25 16:05 Exam Narrative: APPEARANCE: Patient appears uncomfortable Head: atraumatic. EYES: EOMI, NOSE: Atraumatic NECK: Trachea midline RESPIRATORY: No increased rate of breathing CARDIOVASCULAR: RRR, ABDOMINAL: Suprapubic tenderness and fullness consistent with the urinary retention MUSCULOSKELETAl: No obvious deformities NEURO: Alert. Moving 4/4 extremities SKIN:: Warm, dry. Normal color PSYCHIATRIC: Normal affect Course Vital Signs Vital signs: Vital Signs Temperature 97.8 F 02/12/25 16:03 Pulse Rate 123 H 02/12/25 16:03 Respiratory Rate 16 02/12/25 16:03 Blood Pressure 158/94 H 02/12/25 16:03 Pulse Oximetry 99 02/12/25 16:03 Oxygen Delivery Room Air 02/12/25 16:03 Temperature 97.8 F 02/12/25 16:03 Pulse Rate 123 H 02/12/25 16:03 Respiratory Rate 16 02/12/25 16:03 Blood Pressure 158/94 H 02/12/25 16:03 Pulse Oximetry 99 02/12/25 16:03 Oxygen Delivery Room Air 02/12/25 16:03 Medical Decision Making [facility] Narrative Medical decision making narrative: -Course: 64-year-old male presenting with urinary retention. Bladder scan showed greater than 500 cc urine. A coude catheter was placed and ty urine was drained. Patient will be discharged follow-up with urology. Vital Signs Vital Signs: Vital Signs Temperature 97.8 F 02/12/25 16:03 Pulse Rate 123 H 02/12/25 16:03 Respiratory Rate 16 02/12/25 16:03 Blood Pressure 158/94 H 02/12/25 16:03 Pulse Oximetry 99 02/12/25 16:03 Oxygen Delivery Room Air 02/12/25 16:03 Temperature 97.8 F 02/12/25 16:03 Pulse Rate 123 H 02/12/25 16:03 Respiratory Rate 16 02/12/25 16:03 Blood Pressure 158/94 H 02/12/25 16:03 Pulse Oximetry 99 02/12/25 16:03 Oxygen Delivery Room Air 02/12/25 16:03 Discharge Plan Discharge Clinical Impression: Acute urinary retention Patient Disposition: Home Condition: Stable Instructions: Antibiotic Form, Lockett Catheter Placement and Care (ED) Additional Instructions: Please call your urologist and follow up with him early next week. If you develop any complications please return to ED for re-evaluation. Patient Language: [place] Island[place] Follow-up/Referrals: Alexsander Grady MD [Primary Care Provider] -
--- OUTSIDE RECORDS SUMMARY | 2025-02-12 16:46 | XMS_ITS | Encounter Summary ---
Author Organization [facility] Address [address] [place] [address] Care Team Providers Care Hvac Mechanical Engineer Name Role Phone Conor Lunsford MD Primary Care Provider [phone] Reason for Visit * Auth/Cert (Routine) Specialty Diagnoses / Procedures Referred By Contquincy t Referred To Contact Diagnoses HEMATURIA, GROSS; BLADDER MASS R31.0, N32.89 Procedures CYSTOURETHROSCOPY,FULGUR .5-2CM LESN CYSTOSCOPY WITH TRANSURETHRAL RESECTION BLADDER TUMOR Alexsander Grady MD [address] [facility] [address] [facility] [place] [address] Phone: tel: fax: Referral ID Status Reason Start Date Expiration Date Visits Re quested Visits Authorized [id number] 1 1 Encounter Details Date Type Department Care Team (Late st Contact Info) Description 02/11/2025 7:26 AM CDT Anesthesia Event [facility] [place] [address] [place], [place] [id number] Suzie Figueredo MD [address] [facility] [address] [place] [address] Verna Hernandez FNP [address] [place] [address] Anesthesia Record Procedure Summary Procedure Name Responsible [...] care under the direct supervision of the ORTHODONTIST VICE PRESIDENT. ORTHODONTIST VICE PRESIDENT remains present for continuous supervision of the [...] AM CDT Karyn Mayo RN Active * [place] Suicide Severity Rating Scale (Screener/Recent Self-Report) Question [...] No date: Cataract No date: Diabetes mellitus ([facility]) NPO Status: Physical Evaluation Airway Mallampati: II [...] Description 04/08/2025 1:00 PM CDT Office Visit [facility] Medical Group Family & Internal Medicine [address] [address] Conor Lunsford MD [address] [place] [address] documented as of this encounter Goals Goal [...] IVPB 2 g, Intravenous, at 400 mL/hr, order desk caller to O.R., 1 dose, First dose [...] documented as of this encounter Care Teams Hvac Mechanical Engineer Relationship Specialty [place] [address] [place] [address] PCP - General FAMILY PRACTICE 06/23/18 documented as of this encounter
--- OUTSIDE RECORDS SUMMARY | 2025-02-12 16:46 | XMS_ITS | Clinical Summary ---
Author Organization [facility] Address [address] [place] [address] Care Team Providers Care Irish Moss Operator Name Role Phone Becki Lunsford MD Primary Care Provider [phone] Allergies No known active allergies Medications Multiple [...] hyperglycemia, without long-term current use of insulin ([facility]/HCC HHS/HCC) Take 1 tablet by mouth [...] hyperglycemia, without long-term current use of insulin ([facility]) TAKE 1 TABLET BY MOUTH TWICE A DAY 180 tablet 1 5 Active Active Problems Problem Noted Date Diagnosed Date Diabetes mellitus ([facility]) 09/19/2017 Chronic bilateral low back pain without [...] CDT - 02/11/2025 10:24 AM CDT [place] [address] Alexsander Grady MD CYSTOSCOPY WITH TRANSURETHRAL RESECTION BLADDER TUMOR 02/11/2025 7:26 AM CDT Anesthesia [place] [address] Suzie Figueredo MD Jackson, Samantha Rae, FNP 02/11/2025 5:36 AM CDT - 02/11/2025 2:35 PM CDT Hospital Encounter [facility] [place] [address] Alexsander Grady MD Discharge Disposition: Home or Self Care (Routine Discharge) 02/11/2025 Travel 02/02/2025 Travel 01/27/2025 Scan [facility] Scanned, [facility] 01/15/2025 Results Follow-Up [facility] Family [facility] Internal Medicine [address] [address] García RN CT ABD+PEL UROGRAM WWO CON 01/14/2025 12:51 PM CDT - 01/14/2025 11:59 PM CDT [place] [address] [place] [address] Becki Lunsford MD Discharge Disposition: Home or Self Care (Routine Discharge) 01/14/2025 Telephone [facility] Internal [facility] [id number] [place] [phone] Becki Lunsford MD Advice 01/14/2025 Travel 01/06/2025 9:58 AM CDT - 01/06/2025 11:59 PM CDT Hospital Encounter [facility] [address] [place] [address] Becki Lunsford MD Discharge Disposition: Home or Self Care (Routine Discharge) 01/06/2025 Orders Only [facility] Internal [address] [address] Becki Lunsford MD 01/06/2025 Results Follow-Up [facility] [address] [place] [address] Kassie García RN COMPREHENSIVE METABOLIC PANEL, LIPID PANEL, PROSTATE SPECIFIC ANTIGEN,SCREENING, Additional followed-up results: 2 01/06/2025 Orders Only [facility] [address] [address] Becki Lunsford MD 01/06/2025 Orders Only [facility] [address] [address] Becki Lunsford MD 01/05/2025 1:45 PM CDT - 01/05/2025 11:59 PM CDT Hospital Encounter [facility] [address] [place] [address] Becki Lunsford MD Discharge Disposition: Home or Self Care (Routine Discharge) 01/05/2025 1:00 PM CDT Office Visit [facility] Family [facility] Internal Medicine [facility] [address] [place] [address] Becki Lunsford MD Follow Up; Diabetes 01/05/2025 Orders Only [facility] [address] [place] [address] Becki Lunsford MD 01/05/2025 Travel from Last [...] Description 04/08/2025 1:00 PM CDT Office Visit [facility] [address] [place] [address] Becki Lunsford MD [address] [address] Health Maintenance Due Date Last [...] Eye Exam 05/24/2026 05/24/2024, 06/06/2020 PHQ-2 (Physician [place]) Completed 01/05/2025 AAA SCREENING Completed 01/14/2025 Meningococcal [...] Care Plan Autogenerated Problem No Shikha Byrd, chiller hand Procedure Name Priority Date/Time Associated Diagnosis Comments [...] hyperglycemia, without long-term current use of insulin ([facility]) Prostate cancer screening HTN (hypertension) Mixed hyperlipidemia HC URINALYSIS AUTO W/O MICRO Routine 01/06/2025 9:30 AM CDT Type 2 diabetes mellitus with hyperglycemia, without long-term current use of insulin ([facility]) Prostate cancer screening HTN (hypertension) Mixed hyperlipidemia PROSTATE SPECIFIC ANTIGEN,SCREENING Routine 01/05/2025 1:56 PM CDT Type 2 diabetes mellitus with hyperglycemia, without long-term current use of insulin ([facility]) Prostate cancer screening HTN (hypertension) Mixed hyperlipidemia LIPID PANEL Routine 01/05/2025 1:56 PM CDT Type 2 diabetes mellitus with hyperglycemia, without long-term current use of insulin ([facility]) Prostate cancer screening HTN (hypertension) Mixed hyperlipidemia COMPREHENSIVE METABOLIC PANEL Routine 01/05/2025 1:56 PM CDT Type 2 diabetes mellitus with hyperglycemia, without long-term current use of insulin ([facility]) Prostate cancer screening HTN (hypertension) Mixed hyperlipidemia COLLECT.CAPILLARY (FNGR,HEEL,EAR) Routine 01/05/2025 12:56 PM CDT Type 2 diabetes mellitus with hyperglycemia, without long-term current use of insulin ([facility]) HEMOGLOBIN, GLYCOSYLATED Routine 01/05/2025 Type 2 diabetes mellitus with hyperglycemia, without long-term current use of insulin ([facility]) DIABETIC RETINOPATHY EXAM (NEGATIVE)(SCAN ORDER) Routine 05/24/2024 [...] 11:17 AM Narrative 02/11/2025 11:17 AM CDT [facility] [address] [place], [place] [address] SINGLE VIEW OF THE CHEST Clinical history: Hypoxia Comparison: None A single view of the chest demonstrates the cardiac silhouette to be normal in size and appearance. The pulmonary vessels appear normal. The Lungs are clear. No consolidations or effusions are seen. Procedure Note Kings Rodriguez MD - 02/11/2025 [facility] [address] [place], [place] [address] SINGLE VIEW OF THE CHEST Clinical history: [...] of2 resultswithin the time period is included. [facility] GLUCOSE POC 210(H) 70 - 99 mg/dL 02/11/2025 9:22 AM CDT [facility] 02/11/2025 9:20 AM CDT Alexsander Grady MD POCT ORDERABLES - DEVICE Final Result [facility] [address] [place] [address], [place] [phone] * ECG 12 lead (02/11/2025 6:47 AM CDT) 02/11/2025 6:47 AM CDT Narrative [facility] ([place]) RAD - 02/11/2025 7:[address] [facility] [address] [place] [address] Test Date: 2025-02-11 Pat Name: LEYLA ALTAGRACIA Department: 40 Room: [facility] Gender: Male Adhesive Bonding Machine Operator: : 1960 Requested By: NIHARIKA HERNANDEZ Order Number: [id number] Reading J CARLOS Diaz Measurements Intervals [place] Rate: 87 P: 60 FL: 149 QRS: 261 QRSD: 150 T: 47 [...] Diaz MD - 02/11/2025 [facility] [address] [place] [address] Test Date: 2025-02-11 Pat Name: LEYLA ALTAGRACIA Department: 40 Room: [facility] Gender: Male Adhesive Bonding Machine Operator: : 1960 Requested By: NIHARIKA HERNANDEZ Order Number: [id number] Reading J ACRLOS Diaz Measurements Intervals [place] Rate: 87 P: 60 FL: 149 QRS: 261 QRSD: 150 T: 47 QT: 394 QTc: 476 Interpretive Statements SINUS RHYTHM RIGHT AXIS DEVIATION [QRS AXIS > 100] RIGHT BUNDLE BRANCH BLOCK [120+ ms QRS DURATION, UPRIGHT V1, 40+ ms SIN I/aVL/V4/V5/V6] Compared to ECG 08/13/2015 10:00:38 Right-axis deviation now present Right bundle-branch block now present Sinus tachycardia no longer present Right superior axis no longer present Niharika Hernandez USED CAR SALESPERSON ECG ORDERABLES Final R esult [facility] ([place]) RAD * Pathology (02/11/2025 12:00 AM CDT) PATHOLOGY [facility] Department of Laboratory Medicine [address] [place] [address] , extension [phone] Pathology Report Surgical Pathology Report Name: LEYLA FRIAS Specimen #: [id number] Age: 11 1960 (Age: 64) Location: [facility] Sex: M Procedure Date: 02/11/2025 Hospital #: [id number] Date Received: 02/11/2025 Date Reported: 02/12/2025 Provider: [...] interpretation, and sign out were performed at [facility], [address] [place] [address]. Electronically Signed Out PEDRO LUIS BOBBY MD [facility] TISSUE URINARY BLADDER STRUCTURE / Unknown 02/11/2025 8:05 AM CDT Alexsander Grady MD PATHOLOGY/CYTOLOGY ORDERABLES F inal Result Performing Organization Address City/[facility]/ZIP Co de Phone Number [facility] [address] [place] [address], [phone] * CT ABD+PEL UROGRAM WWO CON (01/14/2025 [...] 11:58 PM Narrative 01/15/2025 12:02 AM CDT [place] [id number] [facility] [place] [address] EXAMINATION: CT Abdomen and Pelvis with and [...] Procedure Note Jake Mcmullen MD - 01/15/2025 [facility] [address] [facility] [address] EXAMINATION: CT Abdomen and Pelvis with and [...] COLOR (U) YELLOW 01/06/2025 10:31 AM CDT [facility] TRANSPARENCY HAZY 01/06/2025 10:31 AM CDT [facility] SPECIFIC GRAVITY (U) 1.020 1.000 - 1.030 01/06/2025 10:31 AM CDT [facility] U PH 7.0 5.0 - 9.0 01/06/2025 10:31 AM CDT [facility] LEUKOCYTES (U) TRACE(A) NEGATIVE 01/06/2025 10:31 AM CDT [facility] NITRITES POSITIVE(A) NEGATIVE 01/06/2025 10:31 AM CDT [facility] PROTEIN RANDOM (U) 1+(A) NEGATIVE 01/06/2025 10:31 AM CDT [facility] GLUCOSE (U) 3+(A) NEGATIVE 01/06/2025 10:31 AM CDT [facility] KETONES MG/DL (U) NEGATIVE NEGATIVE 01/06/2025 10:31 AM CDT [facility] BILIRUBIN (U) NEGATIVE NEGATIVE 01/06/2025 10:31 AM CDT [facility] BLOOD (U) 3+(A) NEGATIVE 01/06/2025 10:31 AM CDT [facility] URINE SPECIMEN OBTAINED BY CLEAN CATCH PROCEDURE / Unknown 01/06/2025 9:30 AM CDT Becki Lunsford MD URINE ORDERABLES Final Resu lt [facility] [address] [place] [address], [place] [phone] * URINE BACTERIA CULTURE (01/06/2025 9:30 AM CDT) SPEC DESCRIPTION URINE CLEAN CATCH 01/06/2025 4:42 PM CDT [facility] SPECIAL REQUESTS NO SPECIAL REQUEST 01/06/2025 4:42 PM CDT [facility] CULTURE RESULT POLYMICROBIAL GROWTH CONSISTENT WITH NORMAL GENITAL VANESSA. SUSCEPTIBILITIES NOT ROUTINELY PERFORMED. 01/08/2025 1:38 PM CDT [facility] URINE SPECIMEN OBTAINED BY CLEAN CATCH PROCEDURE / Unknown 01/06/2025 9:30 AM CDT 01/06/2025 4:43 PM CDT Becki Lunsford MD MICROBIOLOGY - [facility] Final Result Performing Organization Address City/[facility]/ZIP Co de Phone Number [facility] [address] [place] [address], [place] [phone] [facility] [address] [place] [address], [place] [phone] * URINALYSIS MICRO ONLY (01/06/2025 9:30 AM CDT) WBC/HPF 5-10 0 - 5 /HPF 01/06/2025 10:32 AM CDT [facility] RBC/HPF 25-50 0 - 5 /HPF 01/06/2025 10:32 AM CDT [facility] EPI/HPF FEW /HPF 01/06/2025 10:32 AM CDT [facility] BACTERIA (U) MANY /HPF 01/06/2025 10:32 AM CDT [facility] 01/06/2025 9:30 AM CDT us Becki Lunsford MD URINE ORDERABLES Final Resu lt [facility] [address] [place] [address], [place] [phone] * (ABNORMAL) MICROALBUMIN CREATININE RATIO (MICROALBUMIN/ALBUMIN) (01/06/2025 9:30 AM CDT) CREATININE (U) 63.0 39 - 259 MG/DL 01/06/2025 2:52 PM CDT [facility] MICROALBUMIN (U) 11.3(H) <2.0 mg/dL 01/06/2025 2:52 PM CDT [facility] ALBUMIN/CREAT RATIO 179.5(H) <30.0 MG/G 01/06/2025 2:52 PM CDT [facility] URINE SPECIMEN / Unknown 01/06/2025 9:30 AM CDT us Becki Lunsford MD URINE ORDERABLES Final Resu lt Performing Organization Address [facility] Co de Phone Number [facility] [address] [place] [address], [place] [phone] * PROSTATE SPECIFIC ANTIGEN,SCREENING (01/05/2025 1:56 PM CDT) PSA 1.68 <4.00 NG/ML 01/05/2025 3:35 PM CDT [facility] Comment: Test was performed using the Siemens method. Results obtained with other assay methods or kits cannot be used interchangeably with results obtained by the Siemens method. 01/05/2025 1:56 PM CDT us Becki Lunsford MD LABORATORY Final Resul t Performing Organization Address [facility] de Phone Number [facility] [address] [place] [address], [place] [phone] * (ABNORMAL) COMPREHENSIVE METABOLIC PANEL (01/05/2025 1:56 PM CDT) GLUCOSE 193(H) 70 - 99 MG/DL 01/05/2025 3:21 PM CDT [facility] BUN 8 7 - 18 MG/DL 01/05/2025 3:21 PM CDT [facility] CREATININE S/P/B 0.92 0.7 - 1.3 MG/DL 01/05/2025 3:21 PM CDT [facility] SODIUM S/P/B 137 136 - 145 MMOL/L 01/05/2025 3:21 PM CDT [facility] POTASSIUM S/P/B 3.9 3.5 - 5.1 MMOL/L 01/05/2025 3:21 PM CDT [facility] CHLORIDE S/P/B 96(L) 100 - 108 MMOL/L 01/05/2025 3:21 PM [facility] CO2 34.6(H) 21 - 32 MMOL/L 01/05/2025 3:21 PM [facility] CALCIUM S/P/B 8.8 8.5 - 10.1 MG/DL 01/05/2025 3:21 PM [facility] BILIRUBIN TOTAL S/P/B 0.4 0.2 - 1.2 MG/DL 01/05/2025 3:21 PM [facility] TOTAL PROTEIN S/P/B 7.4 6.4 - 8.2 G/DL 01/05/2025 3:21 PM [facility] ALBUMIN S/P/B 3.9 3.4 - 5.0 G/DL 01/05/2025 3:21 PM [facility] AST 13(L) 15 - 37 U/L 01/05/2025 3:21 PM [facility] ALT 22 16 - 60 U/L 01/05/2025 3:21 PM [facility] ALKALINE PHOSPHATASE S/P/B 77 50 - 136 U/L 01/05/2025 3:21 PM [facility] ANION GAP 6.4 5 - 15 MMOL/L 01/05/2025 3:21 PM [facility] BUN CREATININE RATIO 8.7 6 - 26 01/05/2025 3:21 PM [facility] A/G RATIO 1.1 1.0 - 2.0 RATIO 01/05/2025 3:21 PM [facility] GFR ESTIMATE >90 >90 ML/MIN/1.7 3 M2 01/05/2025 3:21 PM CDT [facility] Comment: NOTE: eGFR is not calculated for patients <18 years of age. This is an estimated GFR calculation using the new CKD EPI creatinine equation without race and so does not require a correction factor for race. This estimated GFR should not be used for calculating drug doses. 01/05/2025 1:56 PM CDT us Becki Lunsford MD LABORATORY Final Resul t [facility] [address] [place] [address], * (ABNORMAL) LIPID PANEL (01/05/2025 1:56 PM CDT) CHOLESTEROL 118 <200.0 MG/DL 01/05/2025 3:21 PM T [facility] TRIGLYCERIDES 107 <150 MG/DL 01/05/2025 3:21 PM T [facility] HDL 36(L) >40.0 MG/DL 01/05/2025 3:21 PM T [facility] LDL (CALCULATED) 61 <100 MG/DL 01/06/20 3:21 PM [facility] NON HDL CHOLESTEROL 82 <130 MG/DL 01/05 3:21 PM T [facility] CHOL/HDL RATIO 3.3 0.0 - 4.5 01/05/2025 3:21 PM T [facility] VLDL CALCULATION 21 5 - 55 MG/DL 01/05/2025 3:21 PM T [facility] LIPID INTERPRETATION 01/05/2025 3:21 PM [facility] Comment: NIH CONCENSUS REPORT RECOMMENDATIONS: [...] LABORATORY Final Resul t Performing Organization Address [facility] de Phone Number [facility] [address] [place] [address], [place] [phone] * HEMOGLOBIN, GLYCOSYLATED (01/05/2025) HGB A1C 7.7 % [id number] T [facility] 01/05/2025 Becki Lunsford MD LABORATORY Final Resul t Performing Organization Address [facility] de Phone Number [phone] [facility] [address] [place] [address], [place] [phone] * DIABETIC RETINOPATHY EXAM (NEGATIVE) (05/24/2024) us [facility] Scanned SCANNING Final Resu lt Performing Organization Address [facility] de Phone Number [facility] * COLONOSCOPY (08/16/2015) us Documents Scanned SCANNING Final Result from Last 3 Months or Most Recently Relevant to Health Maintenance Additional Health Concerns Active Problems Noted Date Diagnosed Date Autogenerated Problem 01/29/2025 Insurance [facility] Care Teams Irish Moss Operator Relationship Specialty [place] [address] [place], [place] [id number] PCP - General FAMILY PRACTICE 06/23/18
--- OUTSIDE RECORDS SUMMARY | 2025-02-12 16:46 | XMS_ITS | Encounter Summary ---
Author Organization [facility] Address [facility] [place] [address] Care Team Providers Care Airport Shuttle Driver Name Role Phone Conor Lunsford MD Primary Care Provider [phone] Encounter Details Date Type Department Care Team [...] AM CDT Karyn Mayo RN Active * [place] Suicide Severity Rating Scale (Screener/Recent Self-Report) Question [...] HOSP[facility] Family & Internal Medicine [facility] [address] [place] [address] Conor Lunsford MD [address] [facility] [address] [place] [address] documented as of this encounter [...] documented as of this encounter Care Teams Airport Shuttle Driver Relationship Specialty Start [place] [address] [place] [address] PCP - General FAMILY PRACTICE 06/23/18 documented as of this encounter
--- OUTSIDE RECORDS SUMMARY | 2025-02-12 16:46 | XMS_ITS | Encounter Summary ---
Author Organization [facility] Address [address] [place] [address] Care Team Providers Care Wind Turbine Installer Name Role Phone Conor Lunsford MD Primary Care Provider [phone] Reason for Visit * Auth/Cert (Routine) Specialty Diagnoses / Procedures Referred By Susan t Referred To Contact Diagnoses HEMATURIA, GROSS; BLADDER MASS R31.0, N32.89 Procedures CYSTOURETHROSCOPY,FULGUR .5-2CM LESN CYSTOSCOPY WITH TRANSURETHRAL RESECTION BLADDER TUMOR Alexsander Grady MD 3 [facility] [address] [place] [address] Phone: tel: fax: Referral ID Status Reason Start Date Expiration Date Visits Re quested Visits Authorized [id number] 1 1 Encounter Details Date Type Department Care Team (Late st Contact Info) Description 02/11/2025 7:30 AM CDT - 02/11/2025 10:24 AM CDT Surgery [facility] [place] [address] Alexsander Grady MD 3 [facility] [address] [place] [address] [phone] CYSTOSCOPY WITH TRANSURETHRAL RESECTION BLADDER TUMOR Surgery [...] AM CDT Karyn Mayo, RN Active * [place] Suicide Severity Rating Scale (Screener/Recent Self-Report) Question [...] through Care Everywhere. * Cystoscopy Discharge Instructions (Pakistani) * Transurethral resection of a bladder tumor ??? Discharge instructions (Pakistani) * General Anesthesia Discharge Instructions (Pakistani) * Lockett Catheter, Male (Pakistani) documented in this encounter Medications at Time [...] hyperglycemia, without long-term current use of insulin ([facility]HCC) TAKE 1 TABLET BY MOUTH TWICE A DAY 180 tablet 1 01/08/2025 hydroCHLOROthiazide (MICROZIDE) 12.5 MG capsuleIndications:P rimary hypertension Take 1 capsule (12.5 mg total) by mouth every morning. 90 capsule 1 10/14/2024 metFORMIN (GLUCOPHAGE) 1000 MG tabletIndications:Ty pe 2 diabetes mellitus with hyperglycemia, without long-term current use of insulin ([facility]/HCC) Take 1 tablet by mouth daily [...] Date Bladder mass 02/03/2025 Cataract Diabetes mellitus ([facility]/HCC [facility]/HCC) [2] Past Surgical History: Procedure Laterality Date [...] 8:08 AM CDT Patient daughter updated through [employer] texting documented in this encounter OR Notes [...] is a 64-year-old man who presents to [facility] with left lateral wall bladder mass. [...] of the start of surgery. A 26 Belarusian continuous-flow resection scope was introduced through the [...] Per phone interview, patient denies having a breakfast attendant or previous cardiac testing. EKG DOS 2/2 [...] Description 04/08/2025 1:00 PM CDT Office Visit [facility] Family & Internal Medicine [address] [address] Conor Lunsford MD [address] [place] [address] documented as of this encounter Goals Goal [...] 11:17 AM Narrative 02/11/2025 11:17 AM CDT [place] [address] SINGLE VIEW OF THE CHEST Clinical history: Hypoxia Comparison: None A single view of the chest demonstrates the cardiac silhouette to be normal in size and appearance. The pulmonary vessels appear normal. The Lungs are clear. No consolidations or effusions are seen. Procedure Note Kings Rodriguez MD - 02/11/2025 [place] [address] SINGLE VIEW OF THE CHEST Clinical history: [...] - 99 mg/dL 02/11/2025 9:22 AM CDT [facility] 02/11/2025 9:20 AM CDT Alexsander Grady MD POCT ORDERABLES - DEVICE Final Result Performing Organization Address City/State/[facility] Co de Phone Number [facility] [address] [place] [address], * ECG 12 lead (02/11/2025 6:47 AM CDT) 02/11/2025 6:47 AM CDT Narrative [facility] - 02/11/2025 7:19 AM CDT [address] Test Date: 2025-02-11 Pat Name: LEYLA FRIAS Department: 40 Room: [facility] Gender: Male Inverter And Clipper: : 1960 Requested By: NIHARIKA HERNANDEZ Order Number: [id number] Gisela MD: Leyla Diaz Measurements Intervals [place] Rate: 87 P: 60 VT: 149 QRS: 261 QRSD: 150 T: 47 [...] Procedure Note Leyla Diaz MD - 02/11/[address] Test Date: 2025-02-11 Pat Name: LEYLA FRIAS Department: 40 Room: [facility] Gender: Male Inverter And Clipper: : 1960 Requested By: NIHARIKA HERNANDEZ Order Number: [id number] Reading MD: Leyla Diaz Measurements Intervals [place] Rate: 87 P: 60 VT: 149 QRS: 261 QRSD: 150 T: 47 [...] axis no longer present us Niharika Hernandez AUTOMATIC BUFFING WHEEL FORMER ECG ORDERABLES Final R esult Performing Organization Address City/[facility]/ZIP Co de Phone Number [facility] * (ABNORMAL) POCT glucose (02/11/2025 6:43 AM CDT) Pathologist [facility] GLUCOSE POC 144(H) 70 - 99 mg/dL 02/11/2025 6:59 AM CDT [facility] 02/11/2025 6:43 AM CDT us Alexsander Grady MD POCT ORDERABLES - DEVICE Final Result Performing Organization Address City/[facility]/ZIP Co de Phone Number [facility] [address] [place] [address], * Pathology (02/11/2025 12:00 AM CDT) PATHOLOGY [facility] Department of Laboratory Medicine [address] [place] [address] , extension [phone] Pathology Report Surgical Pathology Report Name: LEYLA FRIAS Specimen #: [id number] Age: 11 1960 (Age: 64) Location: [facility] Sex: M Procedure Date: 02/11/2025 Hospital #: [id number] Date Received: 02/11/2025 Date Reported: 02/12/2025 Provider: [...] interpretation, and sign out were performed at [facility], [address] [place] [address], [place] [address]. Electronically Signed Out PEDRO LUIS BOBBY MD [facility] TISSUE URINARY BLADDER STRUCTURE / Unknown 02/11/2025 8:05 AM CDT Alexsander Grady MD PATHOLOGY/CYTOLOGY ORDERABLES F inal Result [facility] [address] [place] [address], [id number] documented in this encounter Visit Diagnoses Not [...] (COMPLETED) 2 g, Intravenous, at 400 mL/hr, bilingual call center representative to O.R., 1 dose, [...] documented as of this encounter Care Teams Wind Turbine Installer Relationship Specialty [place] [address] [place] [address] PCP - General FAMILY PRACTICE 06/23/18 documented as of this encounter
--- OUTSIDE RECORDS SUMMARY | 2025-02-12 16:46 | XMS_ITS | Encounter Summary ---
Author Organization [facility] Address [address] [place] [address] Care Team Providers Care Lacquer Shader Name Role Phone Conor Lunsford MD Primary Care Provider [phone] Encounter Details Date Type Department Care Team (Late st Contact Info) Description 01/15/2025 Results Follow-Up [facility] Family [facility] Internal Medicine [facility] [id number] [place] [address] [address] García RN CT ABD+PEL UROGRAM [...] of results. He v/u. Called [facility] and spoke with Johana. She states they did not receive referral on this pt. Order, chart notes, labs and imaging, insurance info, demographics faxed to them at [phone]. Message also sent to referral dept stating they didnot receive the insurance referral. Kesha states she faxed all info to [facility] and to their referral dept. documented in this encounter Plan of Treatment Upcoming Encounters Date Type Department Care Team (Late st Contact Info) Description 04/08/2025 1:00 PM CDT Office Visit [facility] Family & Internal Medicine - [place] [address] [place] [address] Conor Lunsford MD [address] [address] documented as of this encounter Visit Diagnoses Not on filedocumented in this encounter Additional Health Concerns Assessment Noted Time PHQ-9 Depression Total Score: 2 01/09/20 23 2:30 PM CDT documented as of this encounter Care Teams Lacquer Shader Relationship Specialty Start [place] [address] [place] [address] PCP - General FAMILY PRACTICE 06/23/18 documented as of this encounter
--- OUTSIDE RECORDS SUMMARY | 2025-02-12 16:46 | XMS_ITS | Encounter Summary ---
Author Organization [facility] Address [address] [place] [address] Care Team Providers Care Fire Sprinkler Service Technician Name Role Phone Conor Lunsford MD Primary Care Provider [phone] Encounter Details Date Type Department Care Team (Latest Contact Info) Description 01/06/2025 Results Follow-Up [facility] [address] [place] [address] Kassie García RN COMPREHENSIVE METABOLIC PANEL, LIPID [...] 01/06/2025 4:14 PM CDT Called [facility] lab and informed them we need a [...] Description 04/08/2025 1:00 PM CDT Office Visit [facility] Family & Internal Medicine [facility] [address] [place] [address] Conor Lunsford MD [address] [address] documented as of this encounter Visit Diagnoses Not on filedocumented in this encounter Additional Health Concerns Assessment Noted Time PHQ-9 Depression Total Score: 2 01/09/20 23 2:30 PM CDT documented as of this encounter Care Teams Fire Sprinkler Service Technician Relationship Specialty [place] [address] [place] [address] PCP - General FAMILY PRACTICE 06/23/18 documented as of this encounter
--- OUTSIDE RECORDS SUMMARY | 2025-02-12 16:46 | XMS_ITS | Encounter Summary ---
Author Organization [facility] Address [address] [place] [address] Care Team Providers Care Actuarial Science Teacher Name Role Phone Becki Lunsford MD Primary Care Provider [phone] Reason for Visit * Auth/Cert (Routine) Specialty Diagnoses / Procedures Referred By Susan t Referred To Contact Diagnoses HEMATURIA, GROSS; BLADDER MASS R31.0, N32.89 Procedures CYSTOURETHROSCOPY,FULGUR .5-2CM LESN CYSTOSCOPY WITH TRANSURETHRAL RESECTION BLADDER TUMOR Alexsander Grady MD 3 [facility] [address] [place] [address] Phone: tel: fax: Referral ID Status Reason Start Date Expiration Date Visits Re quested Visits Authorized [id number] 1 1 Encounter Details Date Type Department Care Team (Late st Contact Info) Description 02/11/2025 5:36 AM CDT - 02/11/2025 2:35 PM [facility] Hospital Encounter [facility] [place] [address] Alexsander Grady MD 3 [facility] [address] [place] [address] [phone] Discharge Disposition: Home or Self Care (Routine [...] AM CDT Karyn Mayo RN Active * [place] Suicide Severity Rating Scale (Screener/Recent Self-Report) Question [...] through Care Everywhere. * Cystoscopy Discharge Instructions (Montenegrin) * Transurethral resection of a bladder tumor ??? Discharge instructions (Montenegrin) * General Anesthesia Discharge Instructions (Montenegrin) * Lockett Catheter, Male (Montenegrin) documented in this encounter Medications at Time [...] hyperglycemia, without long-term current use of insulin ([facility] HHS/HCC) TAKE 1 TABLET BY MOUTH TWICE A DAY 180 tablet 1 01/08/2025 hydroCHLOROthiazide (MICROZIDE) 12.5 MG capsuleIndications:P rimary hypertension Take 1 capsule (12.5 mg total) by mouth every morning. 90 capsule 1 10/14/2024 metFORMIN (GLUCOPHAGE) 1000 MG tabletIndications:Ty pe 2 diabetes mellitus with hyperglycemia, without long-term current use of insulin ([facility] HHS/HCC) Take 1 tablet by [...] Date Bladder mass 02/03/2025 Cataract Diabetes mellitus ([facility]/HCC [facility]/HCC) [2] Past Surgical History: Procedure Laterality Date [...] of the start of surgery. A 26 Maori continuous-flow resection scope was introduced through the [...] Per phone interview, patient denies having a jockey agent or previous cardiac testing. EKG DOS 2/2 [...] [facility] [address] [address] Becki Lunsford MD [address] [address] documented as of this encounter Goals Goal [...] 11:17 AM Narrative 02/11/2025 11:17 AM CDT [place] [address] SINGLE VIEW OF THE CHEST Clinical history: Hypoxia Comparison: None A single view of the chest demonstrates the cardiac silhouette to be normal in size and appearance. The pulmonary vessels appear normal. The Lungs are clear. No consolidations or effusions are seen. Procedure Note Kings Rodriguez MD - 02/11/2025 [place] [address] SINGLE VIEW OF THE CHEST Clinical history: [...] - 99 mg/dL 02/11/2025 9:22 AM CDT [facility] 02/11/2025 9:20 AM CDT Alexsander Grady MD POCT ORDERABLES - DEVICE Final Result [facility] [address] [place] [address], * ECG 12 lead (02/11/2025 6:47 AM CDT) 02/11/2025 6:47 AM CDT Narrative [facility] - 02/11/2025 7:19 AM CDT [address] Test Date: 2025-02-11 Pat Name: LEYLA FRIAS Department: 40 Room: [facility] Gender: Male Home And Family Living Professor: : 1960 Requested By: NIHARIKA HERNANDEZ Order Number: [id number] Reading MD: Leyla Diaz Measurements Intervals [place] Rate: 87 P: 60 VT: 149 QRS: [...] Procedure Note Leyla Diaz MD - 02/11/[address] Test Date: 2025-02-11 Pat Name: LEYLA FRIAS Department: 40 Room: [facility] Gender: Male Home And Family Living Professor: : 1960 Requested By: NIHARIKA HERNANDEZ Order Number: [id number] Reading MD: Leyla Diaz Measurements Intervals [place] Rate: 87 P: 60 VT: 149 QRS: [...] superior axis no longer present Niharika Hernandez WINDOW GLASS INSTALLER ECG ORDERABLES Final R esult Performing Organization Address City/[facility]/ZIP Co de Phone Number [facility] * (ABNORMAL) POCT glucose (02/11/2025 6:43 AM CDT) GLUCOSE POC 144(H) 70 - 99 mg/dL 02/11/2025 6:59 AM CDT [facility] 02/11/2025 6:43 AM CDT Alexsander Grady MD POCT ORDERABLES - DEVICE Final Result Performing Organization Address City/[facility] Co de Phone Number [facility] [address] [place] [address], [place] [phone] * Pathology (02/11/2025 12:00 AM CDT) PATHOLOGY [facility] Department of Laboratory Medicine [address] [place] [address] , extension [phone] Pathology Report Surgical Pathology Report Name: ALTAGRACIA LEYLA Hernandez Specimen #: [id number] Age: 11 1960 (Age: 64) Location: [facility] Sex: M Procedure Date: 02/11/2025 Hospital #: [id number] Date Received: 02/11/2025 Date Reported: 02/12/2025 Provider: [...] interpretation, and sign out were performed at [facility], [address] [place] [address]. Electronically Signed Out PEDRO LUIS BOBBY MD [facility] TISSUE URINARY BLADDER STRUCTURE / Unknown 02/11/2025 8:05 AM CDT us Alexsander Grady MD PATHOLOGY/CYTOLOGY ORDERABLES F inal Result [facility] [address] [place] [address], [id number] documented in this encounter Visit Diagnoses Diagnosis [...] (COMPLETED) 2 g, Intravenous, at 400 mL/hr, manager call center to O.R., 1 dose, First dose on Josefina 02/11/25 at 0615, Pre-Op 0737 (New Bag - Prov ider: Sheldon Renner, ARMAMENT REPAIRER) ipratropium-albuterol (DUONEB) 0.5-2.5 (3) MG/3ML nebulizer solution [...] documented as of this encounter Care Teams Actuarial Science Teacher Relationship Specialty [place] [address] [place] [address] PCP - General FAMILY PRACTICE 06/23/18 documented as of this encounter
== END 2025-02-12 16:57 | disposition home or self-care (01) ==
LOC: ANHED 16:44
PROVIDERS: Emergency Provider Emergency Medicine; PCP Family Medicine Sports Medicine
DX: R33.9 Retention of urine, unspecified (principal)
CPT/HCPCS: 51702; 99283